=== PATIENT | female | born 1955 | race Caucasian/White ===

== ENCOUNTER 2019-11-30 06:27 | Day surgery (SDC) | payer OTHER, SELFPAY ==
[2019-11-22 11:24] VITALS: BMI 28.6
--- NOTE | 2019-11-23 15:30 | P.CONAN_ITS ---
Documented by User: Jasmyne Carvajalney 11/23/19 15:34 HPI - Anesthesia Eval Consult details Narrative: 64yo F for Colonoscopy [facility] Past Medical History Medical History Anxiety Arthritis Headache IBS (irritable bowel syndrome) Paroxysmal SVT (supraventricular tachycardia) Surgical History Surgical History Anal fistula H/O cardiac radiofrequency ablation History of bunionectomy History of surgical removal of ganglion cyst Hx of arthroscopic knee surgery Hx of cholecystectomy Hx of colonoscopy Social History Social History Smoking Status: Never smoker Use of substances other than those prescribed or required for medical reasons: No Advance Directives: Yes Advance Directives on File: Yes Advance Directives Date on File: 11/30/19 Meds Allergies Allergy/AdvReac Type Severity Reaction Status Date / Time erythromycin base Allergy Severe ANAPHYLAXIS Unverified 11/04/19 15:50 [Erythromycin Base] Erythromycin Allergy Unknown Anaphylaxis Verified 11/30/19 06:40 From Percocet Allergy Mild PASSED Uncoded 11/04/19 15:50 OUT Home Medications Medication Instructions Recorded Confirmed Type [id number] 1 cap PO Q4H PRN 11/22/19 11/22/19 History [Fiorinal] diltiazem HCl [Cardizem CD] 120 mg PO DAILY 11/22/19 11/30/19 History linaclotide [Linzess] 290 mcg PO DAILY 11/22/19 11/22/19 History lorazepam 0.25 mg PO BEDTIME PRN 11/22/19 11/22/19 History Exam Exam Date and Time: November 23, 2019 1530 Height,Weight and Vital Signs: Height 5 ft 5 in Weight 78.018 kg Documented by User: Jorge Judge MD 11/30/19 07:28 [facility] Past Medical History Medical History Anxiety Arthritis Headache IBS (irritable bowel syndrome) Paroxysmal SVT (supraventricular tachycardia) Surgical History Surgical History Anal fistula H/O cardiac radiofrequency ablation History of bunionectomy History of surgical removal of ganglion cyst Hx of arthroscopic knee surgery Hx of cholecystectomy Hx of colonoscopy Social History Social History Smoking Status: Never smoker Use of substances other than those prescribed or required for medical reasons: No Advance Directives: Yes Advance Directives on File: Yes Advance Directives Date on File: 11/30/19 Meds Allergies Allergy/AdvReac Type Severity Reaction Status Date / Time erythromycin base Allergy Severe ANAPHYLAXIS Unverified 11/04/19 15:50 [Erythromycin Base] Erythromycin Allergy Unknown Anaphylaxis Verified 11/30/19 06:40 From Percocet Allergy Mild PASSED Uncoded 11/04/19 15:50 OUT Home Medications Medication Instructions Recorded Confirmed Type [id number] 1 cap PO Q4H PRN 11/22/19 11/22/19 History [Fiorinal] diltiazem HCl [Cardizem CD] 120 mg PO DAILY 11/22/19 11/30/19 History linaclotide [Linzess] 290 mcg PO DAILY 11/22/19 11/22/19 History lorazepam 0.25 mg PO BEDTIME PRN 11/22/19 11/22/19 History Exam Airway Mallampati Class: I TM Dist: >3cm Neck ROM: Full Loose/Missing/Broken Teeth: No Heart: rrr Lungs: nl Other: ao3 Assessment and Plan Assessment Anesthesia Assessment: Anesthesia Plan Discussed and Chart Reviewed Final Anesthetic Review NPO: Yes ASA Class: II Final Preanesthetic Review: No Changes in Pt Med Stat, Meds/Allgs Chart Reviewed, Consent Obtained/Reviewed and Anes Risks/Benef Reviewed Patient Risk: Low Procedure Risk: Low Anesthetic Plan Anesthetic Plan: MAC: Disposition: Standard PACU
[2019-11-30 06:42] VITALS: BP 176/97; PULSE 68; RESP 16; TEMP 37.2; O2SAT 97
--- NOTE | 2019-11-30 07:29 | MHC.SHP ---
Pre-Procedural Eval Section B Chief Complaint: SCREENING Details of Present Illness: screening Relevant Family History (Specify if Yes): No Relevant Social History: None Present Medications: see Short Stay Collaborative assessment Medical History: No relevant PMH (see H&P no changes) History of Previous Operations: No relevant previous surgery Allergies: Allergies Allergy/AdvReac Type Severity Reaction Status Date / Time erythromycin base Allergy Severe ANAPHYLAXIS Unverified 11/04/19 15:50 [Erythromycin Base] Erythromycin Allergy Unknown Anaphylaxis Verified 11/30/19 06:40 From Percocet Allergy Mild PASSED Uncoded 11/04/19 15:50 OUT Review of Systems Sugical H&P ROS: Negative: Constitution, Cardiovascular, Respiratory, Neurological, Psychiatric, Hem-Onc, Allergic/Immunologic, Gastrointestinal, Genitourinary, Musculoskeletal, Integumentary, Endocrine and Eyes/Ears/Nose/Throat Exam Surgical H&P Exam: Normal: HEENT, Normal: Heart, Normal: Lungs, Normal: Extremities, Normal: Abdomen, Normal: Skin and Normal: Neurological Plan Diagnosis/Plan: Unchanged Patient has been examined and remains a candidate for the planned procedure
[2019-11-30 08:01] VITALS: BP 150/87; PULSE 68; RESP 14; TEMP 36.8; O2SAT 99
--- NOTE | 2019-11-30 08:06 | PM.OP ---
Brief Operative Note Date of procedure: 11/30/19 Pre-op diagnosis: screening Post-op diagnosis: other (colon polyp) Procedure: colonoscopy Surgeon: Chon Castro Anesthesia: MAC Estimated blood loss (mL): 0 Pathology: other (polyp) Condition: stable Disposition: PACU
--- NOTE | 2019-11-30 08:08 | PM.OP ---
Brief Operative Note Date of procedure: 11/30/19 Pre-op diagnosis: screening Post-op diagnosis: other (colon polyp) Procedure: colonoscopy Surgeon: Chon Castro Anesthesia: MAC Estimated blood loss (mL): 2 Pathology: other (polyp 25 cm) Condition: stable Disposition: PACU
[2019-11-30 08:16] VITALS: BP 170/90; PULSE 69; RESP 20; O2SAT 99
--- NOTE | 2019-11-30 08:35 | HO.POSTANES ---
Post Anesthesia Evaluation Post Anesthesia Evaluation Vital Signs: Vital Signs Temp Pulse Resp BP Pulse Ox 11/30/19 08:16 69 20 170/90 H 99 11/30/19 08:01 98.3 F 68 14 150/87 H 99 11/30/19 06:42 98.9 F 68 16 176/97 H 97 Anesthesia: Monitored Mental Status: Awake Pain Control: Satisfactory Nausea/Vomiting: None Hydration: Adequate Anesthesia-Related Issues: No Anes. Related Issues
--- NOTE | 2019-11-30 09:02 | OP_ITS ---
SURGEON: Chon Castro MD INDICATIONS: Colon cancer screening. PREOPERATIVE DIAGNOSIS: POSTOPERATIVE DIAGNOSIS: PROCEDURE PERFORMED: Colonoscopy to the terminal ileum with biopsy. ESTIMATED BLOOD LOSS: COMPLICATIONS: ANESTHESIA: ASSISTANTS: SPECIMENS: MEDICATIONS: Monitored anesthesia care. DESCRIPTION OF PROCEDURE: History and physical performed. The risks and benefits of the procedure were explained to the patient. Informed consent was obtained. The patient was placed in the left lateral decubitus position. A digital rectal exam was performed and was found to be normal. The Olympus pediatric video colonoscope was introduced into the rectum and advanced to the cecum without difficulty. The cecum was identified by transillumination, palpation, and identification of ileocecal valve. Examination was performed and the scope was removed. She tolerated the procedure well and was taken to recovery area in stable condition. FINDINGS: The terminal ileum was normal. The visualized colonic mucosa was normal. The quality of the prep was good. A single polyp at 25 cm was removed with biopsy forceps and placed in formalin. No other polyps were identified. The quality of the prep was good. There was mild diverticulosis in the sigmoid. Retroflexed examination showed moderate-sized internal hemorrhoids. IMPRESSION: Colon polyp. RECOMMENDATION: Follow up the biopsy results. MD PAUL Rodríguez/VETO / [id number]
== END 2019-11-30 09:00 | disposition home or self-care (01) ==
PROVIDERS: Internal Medicine Gastroenterology; PCP Physician Assistant; Visit Provider Internal Medicine
PROC: 0DJD8ZZ Inspection of Lower Intestinal Tract, Via Natural or Artificial Opening Endoscopic (ICD-10-PCS; CPT 45378; principal; 2019-11-30 07:30)
DX: Z12.11 Encounter for screening for malignant neoplasm of colon (principal); Z86.010 Personal history of colon polyps; K63.5 Polyp of colon; K57.30 Diverticulosis of large intestine without perforation or abscess without bleeding; K64.8 Other hemorrhoids; K58.1 Irritable bowel syndrome with constipation; Z90.49 Acquired absence of other specified parts of digestive tract; Z80.6 Family history of leukemia; Z79.899 Other long term (current) drug therapy; Z88.1 Allergy status to other antibiotic agents; Z88.8 Allergy status to other drugs, medicaments and biological substances
CPT/HCPCS: 45380; 88305

== ENCOUNTER 2019-12-15 09:15 | Outpatient (REF) | payer OTHER, SELFPAY ==
[2019-12-15 10:45] LABS: Anion Gap 13 (12-20); Blood Urea Nitrogen 14 mg/dL (9-16); Calcium 9.1 mg/dL (8.4-10.2); Carbon Dioxide 30 mmol/L (22-29); Chloride 103 mmol/L (96-108); Estimated Glomerular Filt Rate > 60; Glucose Random 91 mg/dL (60-115); Potassium 4.3 mmol/l (3.3-5.1); Sodium 142 mmol/L (135-145)
== END 2019-12-15 09:16 | disposition home or self-care (01) ==
LOC: HO.10HDL 09:15
PROVIDERS: Visit Provider Nurse Practitioner Family
DX: I10 Essential (primary) hypertension (principal)
CPT/HCPCS: 80048

== ENCOUNTER 2020-04-13 15:11 | Outpatient (REF) | payer OTHER, SELFPAY ==
--- NOTE | ~2020-04-13 | MM_ITS ---
EXAMINATION: MM SCREENING DIGITAL BREAST TOMOSYNTHESIS, BILATERAL CLINICAL INFORMATION: Screening. Asymptomatic. The lifetime risk of breast cancer based on the Tyrer-Cuzick Model is 8.2%. COMPARISON: Mammography: April 08, 2019 and studies dating back to September 23, 2011 TECHNIQUE: Digital breast tomosynthesis is performed in both the craniocaudal and mediolateral oblique views along with computer-aided detection (CAD). Synthesized 2D images are generated from the tomosynthesis. FINDINGS: There are scattered areas of fibroglandular density (ACR BI-RADS breast composition Category b). There are no significant masses, abnormal calcifications, or other abnormalities. MM/MM tomosynthesis screening BI IMPRESSION: There are no significant changes from prior study. ASSESSMENT: BI-RADS 1: Negative RECOMMENDATION: Routine annual mammography screening. This patient's information was entered into a reminder system with a target due date for their next mammogram.
== END 2020-04-13 15:12 | disposition home or self-care (01) ==
LOC: HO.MAMMO 15:11
PROVIDERS: PCP Physician Assistant; Visit Provider Physician Assistant
DX: Z12.31 Encounter for screening mammogram for malignant neoplasm of breast (principal)
CPT/HCPCS: 77063; 77067

== ENCOUNTER → 2020-07-13 08:18 | Outpatient (BNVA) | payer OTHER, SELFPAY | PROVIDERS: PCP Physician Assistant; Referring Provider Physician Assistant; Visit Provider Internal Medicine Cardiovascular Disease | DX: I47.1 Supraventricular tachycardia (principal); I10 Essential (primary) hypertension | CPT/HCPCS: 93005 ==

== ENCOUNTER 2021-03-29 08:19 | Outpatient (REF) | payer OTHER, SELFPAY ==
[2021-03-29 10:34] LABS: Hematocrit 39.3 % (37.0-47.0); Hemoglobin 13.2 g/dl (12.0-16.0); Mean Corpuscular HGB Conc 33.6 g/dl (31.0-35.0); Mean Corpuscular Hemoglobin 29.9 pg (27.0-33.0); Mean Corpuscular Volume 89.1 fL (80.0-98.0); Platelet Count 281 X10*3/uL (160-400); Red Blood Count 4.41 X10*6/uL (4.20-5.50); White Blood Count 3.5 X10*3/uL (4.8-10.8)
[2021-03-29 10:45] LABS: Estimated Average Glucose 111 mg/dL; Hemoglobin A1c % 5.5 %
[2021-03-29 10:52] LABS: Alanine Aminotransferase 25 U/L (0-31); Alkaline Phosphatase 42 U/L (39-117); Anion Gap 8 (12-20); Aspartate Amino Transferase 24 U/L (5-31); Bilirubin Total 0.5 mg/dL (0.0-1.0); Blood Urea Nitrogen 11 mg/dL (9-16); Calcium 9.3 mg/dL (8.4-10.2); Carbon Dioxide 31 mmol/L (22-29); Chloride 106 mmol/L (96-108); Cholesterol 202 mg/dL; Estimated Glomerular Filt Rate > 60; Glucose Fasting 93 mg/dL (60-99); HDL Cholesterol 73 mg/dL; LDL Cholesterol Calculated 120 mg/dl; Potassium 3.9 mmol/L (3.3-5.1); Sodium 141 mmol/L (135-145); Total Protein 6.1 g/dL (6.5-8.0); Triglycerides 47 mg/dL
[2021-03-29 11:07] LABS: TSH reflex Free T4 1.16 uIU/mL (0.32-4.0)
== END 2021-03-29 08:20 | disposition home or self-care (01) ==
LOC: HO.10HDL 08:19
PROVIDERS: Visit Provider Physician Assistant
DX: I10 Essential (primary) hypertension (principal)
CPT/HCPCS: 36415; 80053; 80061; 83036; 84443; 85027

== ENCOUNTER 2021-04-17 07:24 | Outpatient (REF) | payer OTHER, SELFPAY ==
--- NOTE | ~2021-04-17 | MM_ITS ---
EXAMINATION: MM SCREENING DIGITAL BREAST TOMOSYNTHESIS, BILATERAL CLINICAL INFORMATION: Screening. Asymptomatic. The lifetime risk of breast cancer based on the Tyrer-Cuzick Model is 7%. COMPARISON: Mammography: 04/13/2020, 04/08/2019, 02/24/2018 TECHNIQUE: Digital breast tomosynthesis is performed in both the craniocaudal and mediolateral oblique views along with computer-aided detection (CAD). Synthesized 2D images are generated from the tomosynthesis. FINDINGS: There are scattered areas of fibroglandular density (ACR BI-RADS breast composition Category b). There are no significant masses, abnormal calcifications, or other abnormalities. Breast tissue composition borders on predominantly fatty. Parenchymal pattern is similar to prior studies. There are no significant changes. MM/MM tomosynthesis screening BI IMPRESSION: No mammographic evidence of malignancy. ASSESSMENT: BI-RADS 1: Negative RECOMMENDATION: Routine annual mammography screening. This patient's information was entered into a reminder system with a target due date for their next mammogram.
== END 2021-04-17 07:25 | disposition home or self-care (01) ==
LOC: HO.MAMMO 07:24
PROVIDERS: PCP Physician Assistant; Visit Provider Physician Assistant
DX: Z12.31 Encounter for screening mammogram for malignant neoplasm of breast (principal)
CPT/HCPCS: 77063; 77067

== ENCOUNTER 2021-04-18 08:35 | Outpatient (REF) | payer OTHER, SELFPAY ==
--- NOTE | ~2021-04-18 | MM_ITS ---
EXAMINATION: BONE DENSITOMETRY CLINICAL INDICATION: Menopause. COMPARISON: None (current study represents initial baseline exam). TECHNIQUE: Using a [employer] DXA System (software version: 13.1) manufactured by [employer], dual-energy x-ray absorptiometry was performed of the lumbar spine and left hip. The images are of good technical quality. Summary results are attached. FINDINGS: AP SPINE L1-L4: BMD 0.920 g/cm2, Z-score -0.8, T-score -2.2, osteopenia. LEFT FEMUR, NECK: BMD 0.816 g/cm2, Z-score -0.3, T-score -1.6, osteopenia. LEFT FEMUR, TOTAL: BMD 0.899 g/cm2, Z-score 0.2, T-score -0.9, normal. IDENTIFIED RISK FACTORS: Menopause, history of fracture (adult), low calcium intake, Thiazide. HISTORY OF FRACTURE: Wrist. MEDICATIONS: Vitamin D. MM/XR DEXA axial skeleton IMPRESSION: 1. DIAGNOSIS: Osteopenia based on the lowest T-score value of -2.2 in the lumbar spine applying World Health Organization criteria. 2. 10-YEAR FRACTURE RISK PREDICTION, FRAX: Major osteoporotic fracture (clinical spine, forearm, hip or shoulder) 15.3%. Hip fracture 1.7%. 3. Treatment Recommendations: NOF guidelines recommend consideration for treatment in postmenopausal women and men age 50 and older presenting with the following: -A hip or vertebral (clinical or morphometric) fracture. -T-score less than or equal to -2.5 at the femoral neck or spine after appropriate evaluation to exclude secondary causes. -Low bone mass at the hip or spine and a 10-year fracture probability by FRAX of greater than or equal to 3% for hip fracture or greater than or equal to 20% for major osteoporotic fracture based on the [place] adapted WHO algorithm. 4. Other Recommendations: All treatment decisions require clinical judgment and consideration of individual patient factors, including patient preferences, comorbidities, previous drug use, risk factors not captured in the FRAX model (e.g. frailty, falls, vitamin D deficiency, increased bone turnover, interval significant decline in bone density) and possible under or overestimation of fracture risk by FRAX. Additional medical evaluation for secondary cause of low bone mineral density may be appropriate. FUTURE SCAN RECOMMENDATION: People with diagnosed cases of osteoporosis or at high risk for fracture should have regular bone mineral density tests. For patients eligible for Medicare, routine testing is allowed once every 2 years. The testing frequency can be increased to one year for patients who have rapidly progressing disease, those who are receiving or discontinuing medical therapy to restore bone mass, or have additional risk factors.
== END 2021-04-18 08:36 | disposition home or self-care (01) ==
LOC: HO.MAMMO 08:35
PROVIDERS: PCP Physician Assistant; Visit Provider Physician Assistant
DX: Z13.820 Encounter for screening for osteoporosis (principal); E83.51 Hypocalcemia; Z78.0 Asymptomatic menopausal state; Z79.899 Other long term (current) drug therapy
CPT/HCPCS: 77080

== ENCOUNTER → 2021-06-19 10:33 | Outpatient (BNVA) | payer OTHER, SELFPAY | PROVIDERS: PCP Physician Assistant; Referring Provider Physician Assistant; Visit Provider Internal Medicine Cardiovascular Disease | DX: I47.1 Supraventricular tachycardia (principal); I10 Essential (primary) hypertension | CPT/HCPCS: 93005 ==

== ENCOUNTER 2021-11-21 15:47 | Outpatient (REF) | payer MEDICARE, OTHER, SELFPAY ==
[2021-11-22 10:27] LABS: HBsAGNum1 0.21 S/CO (0.00-0.99); HIV AB/AG Nonreactive (Nonreactive); HIV Num 1 0.06 S/CO (0.00-0.99); Hepatitis B Surface Antigen Negative (Negative); ~HepC Num1 0.14 S/CO (0.00-0.79); ~Hepatitis C Antibody Nonreactive (Nonreactive)
== END 2021-11-21 15:48 | disposition home or self-care (01) ==
LOC: HO.LAB 15:47
PROVIDERS: Visit Provider Physician Assistant Medical
DX: Z11.4 Encounter for screening for human immunodeficiency virus [HIV] (principal); Z77.21 Contact with and (suspected) exposure to potentially hazardous body fluids
CPT/HCPCS: 36415; 86803; 87340; 87389

== ENCOUNTER 2022-04-23 07:19 | Outpatient (REF) | payer MEDICARE, OTHER, SELFPAY ==
--- NOTE | ~2022-04-23 | MM_ITS ---
EXAMINATION: MM SCREENING DIGITAL BREAST TOMOSYNTHESIS, BILATERAL CLINICAL INFORMATION: Screening. Asymptomatic. The lifetime risk of breast cancer based on the Tyrer-Cuzick Model is 6%. COMPARISON: Mammography: 04/17/2021, 04/13/2020, 04/08/2019 TECHNIQUE: Digital breast tomosynthesis is performed in both the craniocaudal and mediolateral oblique views along with computer-aided detection (CAD). Synthesized 2D images are generated from the tomosynthesis. FINDINGS: There are scattered areas of fibroglandular density (ACR BI-RADS breast composition Category b). Breast tissue composition borders on predominantly fatty. Background stromal markings are normal and there is no developing density or architectural abnormality. There are no significant masses, abnormal calcifications, or other abnormalities. The axilla are unremarkable. No significant changes. MM/MM tomosynthesis screening BI IMPRESSION: No mammographic evidence of malignancy. ASSESSMENT: BI-RADS 1: Negative RECOMMENDATION: Routine annual mammography screening. This patient's information was entered into a reminder system with a target due date for their next mammogram.
== END 2022-04-23 07:20 | disposition home or self-care (01) ==
LOC: HO.MAMMO 07:19
PROVIDERS: PCP Physician Assistant; Visit Provider Physician Assistant
DX: Z12.31 Encounter for screening mammogram for malignant neoplasm of breast (principal)
CPT/HCPCS: 77063; 77067

== ENCOUNTER 2022-06-17 15:17 | Outpatient (REF) | payer MEDICARE, OTHER, SELFPAY ==
--- NOTE | ~2022-06-17 | XR_ITS ---
EXAMINATION: XR KNEE, RIGHT CLINICAL INFORMATION: Unspecified fall. COMPARISON: None available. TECHNIQUE: Four views of the right knee. FINDINGS: The tricompartment joints is reduced. There is mild chondrocalcinosis of the menisci. No loose bodies,.) Or bony erosive changes. No joint effusion seen. No acute fracture or dislocation. XR/XR knee RT 4V IMPRESSION: Mild chondrocalcinosis of the menisci. No visible acute fracture or dislocation seen.
--- NOTE | ~2022-06-17 | XR_ITS ---
EXAMINATION: XR FACIAL BONES CLINICAL INFORMATION: Abrasion COMPARISON: None available. TECHNIQUE: 3 views of the facial bones were obtained. FINDINGS: There are no fractures or dislocations. No bone, joint or soft tissue abnormality is demonstrated. XR/XR facial bones min 3V IMPRESSION: Unremarkable examination.
== END 2022-06-17 15:18 | disposition home or self-care (01) ==
LOC: HO.HMGCX 15:17
PROVIDERS: PCP Physician Assistant; Visit Provider Nurse Practitioner Family
DX: S00.81XA Abrasion of other part of head, initial encounter (principal); W19.XXXA Unspecified fall, initial encounter; Y93.9 Activity, unspecified; Y92.9 Unspecified place or not applicable; Y99.9 Unspecified external cause status
CPT/HCPCS: 70150; 73564

== ENCOUNTER → 2022-06-25 10:11 | Outpatient (BNVA) | payer MEDICARE, OTHER, SELFPAY | PROVIDERS: PCP Physician Assistant; Referring Provider Physician Assistant; Visit Provider Internal Medicine Cardiovascular Disease | DX: I10 Essential (primary) hypertension (principal); I49.1 Atrial premature depolarization; I47.1 Supraventricular tachycardia; Z98.890 Other specified postprocedural states | CPT/HCPCS: 93005; 99212 ==

== ENCOUNTER 2022-10-19 07:10 | Outpatient (REF) | payer MEDICARE, OTHER, SELFPAY ==
[2022-10-19 08:03] LABS: Hematocrit 42.7 % (37.0-47.0); Hemoglobin 14.5 g/dl (12.0-16.0); Mean Corpuscular Hemoglobin 29.5 pg (27.0-33.0); Mean Platelet Volume 9.9 fL (9.4-12.3); Platelet Count 285 X10*3/uL (160-400); Red Blood Count 4.91 X10*6/uL (4.20-5.50); Red Cell Distribution Width 12.5 % (11.0-16.0); White Blood Count 4.4 X10*3/uL (4.8-10.8)
[2022-10-19 08:27] LABS: Alanine Aminotransferase 30 U/L (0-31); Albumin Level 4.2 g/dL (3.5-5.0); Alkaline Phosphatase 50 U/L (39-117); Anion Gap 13 (12-20); Aspartate Amino Transferase 24 U/L (5-31); Bilirubin Total 0.5 mg/dL (0.0-1.0); Blood Urea Nitrogen 12 mg/dL (9-16); Calcium 9.8 mg/dL (8.4-10.2); Carbon Dioxide 28 mmol/L (22-29); Chloride 104 mmol/L (96-108); Cholesterol 225 mg/dL (<200); Estimated Glomerular Filt Rate > 60; Glucose Fasting 97 mg/dL (60-99); HDL Cholesterol 87 mg/dL (>40); LDL Cholesterol Calculated 130 mg/dL (<100); Potassium 3.7 mmol/L (3.3-5.1); Sodium 141 mmol/L (135-145); Total Protein 6.6 g/dL (6.5-8.0); Triglycerides 44 mg/dL (<150)
[2022-10-19 08:31] LABS: Creatinine Urine 168.95 mg/dL; Microalbum/Creatinine Ratio Ur 3.5 ug/mg cr (<30)
[2022-10-19 10:35] LABS: TSH reflex Free T4 1.77 uIU/mL (0.32-4.0)
== END 2022-10-19 07:11 | disposition home or self-care (01) ==
LOC: HO.LAB 07:10
PROVIDERS: PCP Physician Assistant; Visit Provider Physician Assistant
DX: I10 Essential (primary) hypertension (principal); E78.9 Disorder of lipoprotein metabolism, unspecified; I47.1 Supraventricular tachycardia
CPT/HCPCS: 36415; 80053; 80061; 82043; 82570; 84443; 85027

== ENCOUNTER 2022-10-29 07:51 | Outpatient (AMB) | payer MEDICARE, OTHER, SELFPAY ==
[2022-10-29 07:53] VITALS: BP 128/68; PULSE 63; O2SAT 98
--- NOTE | 2022-10-29 07:53 | A.OFFPC_ITS ---
Vital Signs 10/29/22 07:53 Height 5 ft 5 in BMI Reason not done Patient refused/unable BP 128/68 Blood Pressure Location Lt brachial Position Sitting Pulse 63 Pulse Source Pulse Oximeter Pulse Oximetry (%) 98 Oxygen Delivery Method Room Air Intake Visit Reasons: Physical Exam Allergies erythromycin base [Erythromycin Base] Allergy (Severe, Verified 10/29/22 08:07) Anaphylaxis acetaminophen [From Percocet] Allergy (Mild, Verified 10/29/22 08:07) Passed Out oxycodone [From Percocet] Allergy (Mild, Verified 10/29/22 08:07) Passed Out Medication List - Last Reconciled 10/29/22 by Mitch Anderson PA-C qixubnwceh-ryvflqh-stdyuqge 50-325-40 mg 1 cap PO Q4H PRN 5 days diltiazem HCl 120 mg PO DAILY hydrochlorothiazide 25 mg PO DAILY linaclotide (Linzess) 72 mcg PO QAM Tobacco use date assessed: 10/29/22 Fall risk assessment: 1 Fall in past year Last assessed Fall Risk: 10/29/22 Dental Screening Dental Screen Date: 10/29/22 Did you have a dental visit in the last 12 months?: Yes Did you have a dental problem in the last 6 months where you did not have access to dental care?: No Was dental information given to patient?: Patient has dentist HPI Physical Exam HPI Details Patient is a 66 year-old female here today for annual physical. Patient has a past medical history significant for anxiety, mild to moderate arthritis, paroxysmal SVT. concerns--> report left foot pain went walking long distance. 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 .. ? 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 Of note she has had cardiac ablation x2 in the past.? She reports her palpitations have actually gotten more prevalent and worse.? She continues on diltiazem which has been helpful.? She will call her internet database specialist for re-evaluation on her SVT. Recently sent for CT cardiac calcium score which was 0 though incidentally found a 3 mm pulmonary nodule. Did have a history of smoking thus will repeat CT chest to evaluate nodule in 1 year. .. Hypertension:? Patient blood pressure today in office acceptable. Otherwise patient denies any chest discomfort, headaches, shortness of breath, lower extremity edema. ? . ? .. ? Colonoscopy- had colonoscopy 2019- repeat 5 years?- Dr anand ? .. ? Mammo-? Has mammo upcoming Mammo ? .. ? INVESTIGATOR WELFARE: Dr hedrick Did a PAP - .. Vaccine: UTD with COVID , FLu , tetanus, shingles PFSH Medical History (Updated 10/29/22 @ 08:41 by Mitch Anderson PA-C) COVID-19 Postmenopausal HTN (hypertension) Headache Arthritis Anxiety Paroxysmal SVT (supraventricular tachycardia) IBS (irritable bowel syndrome) Surgical History Hx of colonoscopy History of bunionectomy Hx of arthroscopic knee surgery History of surgical removal of ganglion cyst Hx of cholecystectomy H/O cardiac radiofrequency ablation Anal fistula Family History (Updated 10/29/22 @ 08:23 by Mitch Anderson PA-C) Mother AML (acute myeloblastic leukemia) Brother Diabetes Social History (Updated 10/29/22 @ 08:23 by Mitch Anderson PA-C) Housing: House Alcohol intake: never Patient Tobacco Use Status: Former Tobacco user Quit Date: 1968 Tobacco use type: Cigarette e-Cigarette/Vaping Use: Never Used Second Hand Smoke Exposure: No Advance Directives Date on File: 11/30/19 Current occupational status: 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 1. Little interest or pleasure in doing things: not at all 2. Feeling down, depressed, or hopeless: not at all 3. Trouble falling or staying asleep, or sleeping too much: not at all 4. Feeling tired or having little energy: not at all 5. Poor appetite or overeating: not at all 6. Feeling bad about yourself - or that you are a failure or have let yourself or your family down: not at all 7. Trouble concentrating on things, such as reading the newspaper or watching television: not at all 8. Moving or speaking so slowly that other people could have noticed. Or the opposite - being so fidgety or restless that you have been moving around a lot more than usual: not at all 9. Thoughts that you would be better off or of hurting yourself in some way: not at all Total score: 0 Depression Screening Interpretation: Negative 32091 - PHQ-9 Billing: Yes Source: Developed by Drs. Lorenzo Salinas, Janis Larry, Jesus Dunbar and colleagues, with an educational kimber from [employer]. Thrive Questionnaire Date Thrive assessed: 10/29/22 I am a: Patient What is your living situation today?: I have a steady place to live Within the past 12 months, did the food you bought not last and you didn't have the money to get more?: Never true Within the past 12 months, did you worry whether your food would run out before you got money to buy more?: Never true Do you have trouble paying for medicines?: No Do you have trouble getting transportation to medical appointments?: No Do you have trouble paying your heating and electricity bill?: No Do you have trouble taking care of your child, family member or friend?: No Do you have trouble with day-to-day activities such as bathing, preparing meals, shopping, managing finances, etc.?: No Are you currently unemployed and looking for a job?: No Are you interested in more education?: No Currently or been in a relationship where the following occur: no concerns reported AUDIT C Alcohol Use Questionnaire (AUDIT-C) 1. How often do you have a drink containing alcohol?: Monthly or less 2. How many drinks containing alcohol do you have on a typical day when you are drinking?: 1 or 2 3. How often do you have six or more drinks on one occasion?: Never Total Score: 1 LUIS-7 AMB Questionnaire LUIS-7 Date LUIS - 7 assessed: 10/29/22 Feeling nervous, anxious, or on edge: 0 = Not at all Not being able to stop or control worryin = Not at all Worrying too much about different things: 0 = Not at all Trouble relaxin = Not at all Being so restless that it is hard to sit still: 0 = Not at all Becoming easily annoyed or irritable: 0 = Not at all Feeling afraid as if something awful might happen: 0 = Not at all Total LUIS-7 score (0-4 normal; 5-9 mild; 10-14 moderate; 15-21 severe): 0 Source: Developed by Drs. Lorenzo Salinas, Janis Larry, Jesus Dunbar and colleagues, with an educational kimber from [employer]. LUIS-7 Assessment Billing LUIS-7 Assessment Tool: LUIS-7 Assessment 55204 Review of Systems Const Denies body aches, Denies chills, Denies excessive sweating, Denies fatigue, Denies fever(s) and Denies headache(s) Eyes Denies blurry vision ENT Denies dysphagia, Denies vertigo, Denies dizziness, Denies headache(s), Denies hearing loss and Denies tinnitus Card Denies chest pain, Denies chest pain with activity, Denies syncope, Denies irregular heart rhythm and Denies dyspnea Resp Denies chest congestion, Denies cough, Denies hemoptysis, Denies dyspnea and Denies wheezing GI Denies abdominal pain, Denies melena, Denies hematochezia, Denies coffee ground emesis, Denies dysphagia, Denies diarrhea, Denies nausea and Denies vomiting Denies urinary frequency, Denies dysuria, Denies urinary hesitancy and Denies urinary urgency Musc Denies arthralgias, Denies limited range of motion, Denies muscle cramps and Denies muscle weakness Skin/Breast Denies rash and Denies skin ulcer Neuro Denies Abnormal speech present, Denies confusion, Denies vertigo, Denies dizziness, Denies syncope, Denies headache(s), Denies memory loss and Denies seizure-like activity Psych Denies anxiety, Denies confusion, Denies depression, Denies memory loss, Denies panic attacks and Denies paranoia Endo Denies excessive sweating, Denies fatigue, Denies flushing, Denies polydipsia and Denies polyuria Aller/Immun Denies wheezing Physical exam (Primary Care) Vital Signs: Last Vital Signs Pulse 63 10/29/22 07:53 BP 128/68 10/29/22 07:53 Pulse Ox 98 10/29/22 07:53 Oxygen Delivery Method Room Air 10/29/22 07:53 Tobacco/Smoking Status: Tobacco use Status Tobacco use date assessed 10/29/22 10/29/22 07:55 Patient Tobacco Use Status Former Tobacco user 10/29/22 07:55 Tobacco use type Cigarette 10/29/22 07:55 e-Cigarette/Vaping Use Never Used 10/29/22 07:55 PHQ-9: PHQ-9 Score PHQ-9: Total score 0 10/29/22 08:03 Depression Screening Interpretation: Negative Thrive Assessment: Date of Thrive Assessment Date Thrive assessed 10/29/22 10/29/22 08:03 Currently or been in a relationship where the following occur: no concerns reported Const General: cooperative, comfortable, no acute distress, alert and awake; No confusion Orientation/consciousness: oriented to person, oriented to place, patient oriented x3 and No confusion HENMT Head: Yes normocephalic Ears: external ears normal and TM's normal bilaterally Face and sinus: No sinus tenderness Mouth: Normal oral and palatal mucosa present and tongue normal Teeth and gingiva: dentition normal and gingiva normal Throat: Yes posterior oropharynx normal, Yes tonsils normal and Yes uvula midline Eyes Conjunctivae: conjunctivae normal Sclerae: sclerae normal Pupils: Equal, round and reactive pupils present EOM: EOMs intact bilaterally Direct Ophthalmoscopy: No no photophobia Neck Neck: Yes no lymphadenopathy, No tender and Yes no JVD Thyroid: Thyroid normal Carotids: no bruits Chest Chest palpation & inspection: no tenderness Resp Effort & Inspection: normal respiratory effort, no audible wheezes, not labored and no stridor Auscultation: no crackles, no rales, no rhonchi and no wheezes Cardio Jugular venous distension: no JVD Rate: regular rate, not bradycardic and not tachycardic Rhythm: regular rhythm Bruits: no carotid bruits Peripheral pulses: Peripheral pulses 2+ throughout GI Inspection: Yes normal to inspection, No abdominal wall ecchymosis and No visible herniation Palpation (GI): Soft to palpation, nontender, no guarding, not rigid and No hepatosplenomegaly present Auscultation: normoactive bowel sounds General: Yes no CVA tenderness Back/Spine/Pelvis Back: no CVA tenderness and No back tenderness Cervical Spine: cervical ROM normal Thoracic/Lumbar Spine: thoracic and lumbar spine normal to inspection, straight leg raise negative bilaterally, No thoraco-lumbar ROM limited and No lumbar spinal tenderness Skin Lesions: no lesions Rashes: no rashes Wounds: no wounds Neuro General: oriented to person, oriented to place, patient oriented x3, CN's II-XI intact bilaterally and No confusion Cranial nerves: Yes Equal, round and reactive pupils present and Yes Normal accommodation reflex present Cognition (Neuro): normal cognition Speech: No Abnormal speech present Gait exam (Neuro): Normal gait present Motor exam (neuro): 5/5 motor strength present throughout Extrem Right upper extremity: full ROM; no cyanosis Left upper extremity: full ROM; no cyanosis Right lower extremity: no edema Left lower extremity: no edema Psych Appearance: grossly normal Mental Status: mental status grossly normal Affect: normal affect Attitude: cooperative Thought process: Normal thought process present Assessment and Plan Assessment & Plan (1) Annual physical exam: Code(s): Z00.00 - Encounter for general adult medical examination without abnormal findings (2) LUIS (generalized anxiety disorder): Code(s): F41.1 - Generalized anxiety disorder Plan: Patient reports her anxiety has been fairly well controlled though at times of anxiety she does use lorazepam to 0.5 mg on a very limited p.r.n. basis. (3) SVT (supraventricular tachycardia): Code(s): I47.1 - Supraventricular tachycardia Plan: Continues to follow cardiology. Symptoms of SVT I have been limited. Continues on diltiazem with good effect. (4) HTN (hypertension): Code(s): I10 - Essential (primary) hypertension Qualifiers: Hypertension type: essential hypertension Qualified Code(s): I10 - Essential (primary) hypertension Plan: Patient's blood pressure acceptable today in office. Will continue her current dose of hydrochlorothiazide with goal blood pressure to be below 140/90 (5) Pulmonary nodules: Code(s): R91.8 - Other nonspecific abnormal finding of lung field Plan: Incidentally found to have a 3 mm pulmonary nodule on recent CT cardiac. Will follow-up the nodule in 12 months. (6) Borderline high cholesterol: Code(s): E78.9 - Disorder of lipoprotein metabolism, unspecified Plan: Patient's most recent lipid panel showing borderline high total cholesterol and LDL. Fortunately HDL excellent at 87. She will continue working on lifestyle modifications and diet modifications to reduce her cholesterol. (7) Migraines: Code(s): G43.909 - Migraine, unspecified, not intractable, without status migrainosus Qualifiers: Migraine type: without aura Status migrainosus presence: without status migrainosus Intractability: not intractable Qualified Code(s): G43.009 - Migraine without aura, not intractable, without status migrainosus Plan: Patient does use p.r.n. Fioricet for her migraines. She reports her migraines are worse during changes of seasons which could likely be sinusitis. Orders: Orders Microalbumin, Random (w Creat) Today I10 - Essential (primary) hypertension Comprehensive [place]. Panel Fast Today I10 - Essential (primary) hypertension Complete Blood Count no Diff Today I10 - Essential (primary) hypertension Lipid Panel Today E78.9 - Disorder of lipoprotein metabolism, unspecified, I47.1 - Supraventricular tachycardia Medications: New lorazepam 0.5 mg PO BEDTIME 15 days 15 tabs 1RF anxiety F41.1 - Generalized anxiety disorder Refilled evywmibdzg-noxltkc-oljfrmzg 50-325-40 mg 1 cap PO Q4H 5 days PRN 30 caps 0RF Headache H60.311 - Diffuse otitis externa, right ear Coding Level of Care Code Est Pt Prev Care >65y(04096) Diagnoses Annual physical exam Z00.00 LUIS (generalized anxiety disorder) F41.1 SVT (supraventricular tachycardia) I47.1 Essential hypertension I10 Hypertension type: essential hypertension Pulmonary nodules R91.8 Borderline high cholesterol E78.9 Migraine without aura and without status migrainosus, not intractable G43.009 Migraine type: without aura Status migrainosus presence: without status migrainosus Intractability: not intractable Additional Codes LUIS-7 Assessment Billing - LUIS-7 Assessment Tool: LUIS-7 Assessment 09713 ([id number])
== END 2022-10-29 08:36 | disposition home or self-care (01) ==
PROVIDERS: Visit Provider Physician Assistant
DX: Z00.00 Encounter for general adult medical examination without abnormal findings (principal); I47.1 Supraventricular tachycardia; I10 Essential (primary) hypertension; G43.009 Migraine without aura, not intractable, without status migrainosus; F41.1 Generalized anxiety disorder; R91.8 Other nonspecific abnormal finding of lung field; E78.9 Disorder of lipoprotein metabolism, unspecified
CPT/HCPCS: 99397

== ENCOUNTER 2022-11-18 13:59 | Outpatient (REF) | payer MEDICARE, OTHER, SELFPAY ==
[2022-11-18 16:26] LABS: Vitamin D 25-OH Total 42.7 ng/mL (>30)
== END 2022-11-18 14:00 | disposition home or self-care (01) ==
LOC: HO.LAB 13:59
PROVIDERS: PCP Physician Assistant; Visit Provider Physician Assistant
DX: E55.9 Vitamin D deficiency, unspecified (principal)
CPT/HCPCS: 36415; 82306

== ENCOUNTER 2023-04-29 07:21 | Outpatient (REF) | payer MEDICARE, OTHER, SELFPAY ==
--- NOTE | ~2023-04-29 | MM_ITS ---
EXAMINATION: MM SCREENING DIGITAL BREAST TOMOSYNTHESIS, BILATERAL CLINICAL INFORMATION: Screening. Asymptomatic. COMPARISON: Mammography: 04/23/2022, 04/17/2021, 04/13/2020, 04/08/2019 TECHNIQUE: Digital breast tomosynthesis is performed in both the craniocaudal and mediolateral oblique views along with computer-aided detection (CAD). Synthesized 2D images are generated from the tomosynthesis. FINDINGS: The breasts are almost entirely fatty (ACR BI-RADS breast composition Category a). There are no suspicious masses, suspicious grouped calcifications, or areas of architectural distortion in either breast. The parenchymal pattern is stable from prior exams. MM/MM tomosynthesis screening BI IMPRESSION: No mammographic evidence of malignancy. ASSESSMENT: BI-RADS BI-RADS 1 - Negative RECOMMENDATION: Routine annual mammography screening. 1 year F/U This examination should not preclude the clinical evaluation of a suspicious palpable abnormality. This patient's information was entered into a reminder system with a target due date for their next mammogram.
== END 2023-04-29 07:22 | disposition home or self-care (01) ==
LOC: HO.MAMMO 07:21
PROVIDERS: PCP Physician Assistant; Visit Provider Physician Assistant
DX: Z12.31 Encounter for screening mammogram for malignant neoplasm of breast (principal)
CPT/HCPCS: 77063; 77067

== ENCOUNTER → 2023-04-29 07:30 | Outpatient (BNV) | payer MEDICARE, OTHER, SELFPAY | PROVIDERS: PCP Physician Assistant; Visit Provider Radiology Diagnostic Radiology | DX: Z12.31 Encounter for screening mammogram for malignant neoplasm of breast (principal) | CPT/HCPCS: 77063; 77067 ==

== ENCOUNTER 2023-07-21 07:22 | Outpatient (REF) | payer MEDICARE, OTHER, SELFPAY ==
--- NOTE | ~2023-07-21 | CT_ITS ---
EXAMINATION: CT CHEST WITH CONTRAST CLINICAL INFORMATION: Nodule follow-up. History of smoker. Surveillance. COMPARISON: Chest radiograph 04/16/2018 TECHNIQUE: Multidetector volumetric CT imaging of the chest was obtained after the administration of 65 mL of Omnipaque 350 intravenous contrast without immediate adverse reactions. Axial MIP volume rendering provided. Sagittal and coronal reformatted images were obtained. This CT examination was performed using dose optimization techniques as appropriate, variously including the following: *Automated exposure control *Adjustment of mA and/or kV according to patient size (this includes techniques or standardized protocols for targeted exams where dose is matched to indication/reason for exam; i.e. extremities or head) *Use of iterative reconstruction technique DLP: 100 mGy-cm FINDINGS: SHOPPING INVESTIGATOR: Unremarkable LUNGS: Atelectatic change and scar, at the left base extending to the pleural surface. No suspicious nodules or consolidations. MEDIASTINUM: Normal contrast enhancement in the great vessels of the mediastinum. No significant adenopathy. Few tiny punctate subcentimeter calcified nodes are seen in the right paratracheal space. Thoracic inlet is unremarkable. There may be minor coronary artery calcification. PLEURA: There is no pleural effusion. No pleural mass or thickening. AXILLA: No lymphadenopathy. UPPER ABDOMEN: Unremarkable OSSEOUS STRUCTURES: Spondylitic change in the thoracic spine but no fracture. Sternum intact. CT/CT chest w IV con IMPRESSION: No active disease. No suspicious nodules. Fleischner guidelines were followed.
[2023-07-21] MEDS: iohexoL 350 MG/ML 75 ML INFUS..BTL 65 ML IV (08:47)
[2023-07-22 10:54] LABS: Creatinine POC 0.7 mg/dL (0.5-1.4); GFR POC > 60
== END 2023-07-21 07:23 | disposition home or self-care (01) ==
LOC: HO.CT 07:22
PROVIDERS: PCP Physician Assistant; Visit Provider Physician Assistant
DX: R91.8 Other nonspecific abnormal finding of lung field (principal)
CPT/HCPCS: 71260; 82565; Q9967

== ENCOUNTER 2023-08-06 08:30 | Outpatient (AMB) | payer MEDICARE, OTHER, SELFPAY ==
[2023-08-06 08:39] VITALS: BP 116/70; PULSE 63; BMI 27.5
--- NOTE | 2023-08-06 08:39 | MHC.OFFVIS ---
Vital Signs 08/06/23 08:39 Height 5 ft 5 in Weight 165 lb 5.547 oz BMI 27.5 BP 116/70 Blood Pressure Location Lt brachial Position Sitting Pulse 63 Intake Visit Reasons: 1 yr f/up Intake Note: 1 year follow-up with ekg c/o increased fatigue and still has fluttering Resource Engineer Required: No Allergies erythromycin base [Erythromycin Base] Allergy (Severe, Verified 10/29/22 08:07) Anaphylaxis acetaminophen [From Percocet] Allergy (Mild, Verified 10/29/22 08:07) Passed Out oxycodone [From Percocet] Allergy (Mild, Verified 10/29/22 08:07) Passed Out Medication List - Last Reconciled 08/06/23 by Gurvinder Horne MD qtvumsmvtk-qjcnqlt-fibjluhc 50-325-40 mg 1 cap PO Q4H PRN 5 days diltiazem HCl CD 120 mg PO DAILY hydrochlorothiazide 25 mg PO DAILY linaclotide (Linzess) 72 mcg PO QAM lorazepam 1 mg PO BEDTIME 15 days timolol 0.25% 1 drp ophthalmic (eye) DAILY HPI Comments Details: Cristal Comes for follow-up. Patient intermittently still has fluttering in her chest. However she has no concerning prolonged palpitation except for when she goes up hiking she notices heart suddenly racing which then stops after resting and/or rarely has to do a vagal maneuver. She denies any lightheadedness, syncope. Blood pressure is well controlled. Coronary calcium score was 0. She says she has more fatigue now but thinks that this is related to aging. No exertional chest pain. No worsening shortness of breath, orthopnea, PND. PFSH Medical History COVID-19 Postmenopausal HTN (hypertension) Headache Arthritis Anxiety Paroxysmal SVT (supraventricular tachycardia) IBS (irritable bowel syndrome) Surgical History Hx of colonoscopy History of bunionectomy Hx of arthroscopic knee surgery History of surgical removal of ganglion cyst Hx of cholecystectomy H/O cardiac radiofrequency ablation Anal fistula Family History Mother AML (acute myeloblastic leukemia) Brother Diabetes Social History Housing: House Alcohol intake: never Patient Tobacco Use Status: Former Tobacco user Tobacco use type: Cigarette e-Cigarette/Vaping Use: Never Used Second Hand Smoke Exposure: No Advance Directives Date on File: 11/30/19 Current occupational status: 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 Cognitive needs: No Hearing needs: No Vision needs: Yes Review of Systems Const Denies chills, Denies fatigue, Denies fever(s), Denies frequent falls, Denies weakness, Denies weight gain and Denies weight loss ENT Denies dizziness Card Denies chest pain, Denies leg edema, Denies lightheadedness, Denies palpitations, Denies dyspnea, Denies dyspnea on exertion, Denies orthopnea and Denies other (loss of consciousness) Resp Denies cough, Denies dyspnea and Denies dyspnea on exertion GI Denies hematochezia and Denies change in stool character Musc Denies abnormal gait, Denies muscle weakness, Denies numbness, Denies radiating pain into limb and Denies tingling Neuro Denies abnormal gait, Denies dizziness, Denies frequent falls, Denies numbness, Denies tingling and Denies weakness Endo Denies fatigue and Denies palpitations Physical Exam Vital Signs: Last Vital Signs Pulse 63 08/06/23 08:39 BP 116/70 08/06/23 08:39 BMI result Body Mass Index 27.5 Const General: comfortable, no acute distress, alert, awake and well groomed Nutritional Appearance: thin Orientation/consciousness: patient oriented x3 Limitations: no limitations Neck Neck: Yes trachea midline and Yes supple Resp Effort & Inspection: normal respiratory effort Auscultation: clear to auscultation bilaterally Cardio Jugular venous distension: no JVD Palpation: normal PMI Rate: regular rate Rhythm: regular rhythm Heart sounds: S1 normal heart sound present and S2 normal heart sound present GI Auscultation: normal bowel sounds Skin General skin exam: no rashes or lesions noted Neuro General: patient oriented x3 and no focal motor deficits Extrem General: Yes no clubbing, cyanosis or edema Psych Appearance: grossly normal Office Procedures EKG Details: EKG shows NSR with normal EKG [id number], Complete Assessment & Plan Assessment & Plan (1) SVT (supraventricular tachycardia): Code(s): I47.1 - Supraventricular tachycardia Category: Medical Plan: Patient with prior cardiac arrhythmias with prior SVT which she has some brief episode with exercise but also had frequent PACs in the past. She continues to be bothered by occasional fluttering in her chest but they are not very life-limiting at this point time. Continue to avoid stimulants. Continue Cardizem therapy. Will avoid any other uptitration of therapy given symptoms of fatigue which has suggestive of more chronotropic incompetence. (2) HTN (hypertension): Code(s): I10 - Essential (primary) hypertension Category: Medical Qualifiers: Hypertension type: essential hypertension Qualified Code(s): I10 - Essential (primary) hypertension Plan: Hypertension which is currently well optimized advised to monitor blood pressure at home maintain a log. Goal blood pressure less than 130/84. Coronary calcium score of 0 with borderline high cholesterol. Continue aggressive lifestyle modification. Encouraged to increase activity level as tolerated. Will follow up in the clinic in 1 year's time, sooner p.r.n.. Thank you for allowing me to partake in his care Coding Level of Care Code Est Pt Level 4 (92835) Diagnoses SVT (supraventricular tachycardia) I47.1 Essential hypertension I10 Hypertension type: essential hypertension CPT Codes EKG - CPT: 91541-[id number], Complete ([id number])
== END 2023-08-06 09:35 | disposition home or self-care (01) ==
PROVIDERS: PCP Physician Assistant; Visit Provider Internal Medicine Cardiovascular Disease
DX: I47.10 Supraventricular tachycardia, unspecified (principal); I10 Essential (primary) hypertension
CPT/HCPCS: 93010; 99214

== ENCOUNTER → 2023-08-06 08:30 | Outpatient (BNVA) | payer MEDICARE, OTHER, SELFPAY | PROVIDERS: PCP Physician Assistant; Visit Provider Internal Medicine Cardiovascular Disease | DX: I47.10 Supraventricular tachycardia, unspecified (principal); I10 Essential (primary) hypertension | CPT/HCPCS: 93005; 99212 ==

== ENCOUNTER 2023-09-08 12:43 | Outpatient (AMB) | payer MEDICARE, OTHER, SELFPAY ==
[2023-09-08 12:49] VITALS: BP 126/74; PULSE 76; TEMP 36.6; O2SAT 97; BMI 28.3
--- NOTE | 2023-09-08 12:49 | AM.OFFWIN_ITS ---
Intake Vital Signs 09/08/23 12:49 Height 5 ft 5 in Weight 170 lb BMI 28.3 BP 126/74 Blood Pressure Location Rt brachial Position Sitting Pulse 76 Pulse Source Pulse Oximeter Temp 97.9 F Temp Source Oral Pulse Oximetry (%) 97 Oxygen Delivery Method Room Air Intake Visit Reasons: EP RT ankle injury Intake Note: pt is here for left ankle pain due to injury Patient Tobacco Use Status: Former Tobacco user Allergies erythromycin base [Erythromycin Base] Allergy (Severe, Verified 09/08/23 12:49) Anaphylaxis acetaminophen [From Percocet] Allergy (Mild, Verified 09/08/23 12:49) Passed Out oxycodone [From Percocet] Allergy (Mild, Verified 09/08/23 12:49) Passed Out Do you need a note to return to daycare/school/sports/work: No HPI EP RT ankle injury HPI Details This note is constructed using voice recognition software. While every effort has been made to ensure accuracy, building maintenance supervisor errors may have been included. The patient is a 67 year old female who presents to the clinic today with 1 hour history of lateral right ankle pain after a fall with twisting motion. She notes that she had stepped into a hole in her yd, and twisted the ankle, developing immediate swelling and pain. She is able to put pressure on the ankle however there is pain when she walks. She is not done anything to assist or improve the pain as she presented to the walk-in clinic immediately. [facility] Medical History COVID-19 Postmenopausal HTN (hypertension) Headache Arthritis Anxiety Paroxysmal SVT (supraventricular tachycardia) IBS (irritable bowel syndrome) Surgical History Hx of colonoscopy History of bunionectomy Hx of arthroscopic knee surgery History of surgical removal of ganglion cyst Hx of cholecystectomy H/O cardiac radiofrequency ablation Anal fistula Family History Mother AML (acute myeloblastic leukemia) Brother Diabetes Social History Housing: House Alcohol intake: never Patient Tobacco Use Status: Former Tobacco user Tobacco use type: Cigarette e-Cigarette/Vaping Use: Never Used Second Hand Smoke Exposure: No Advance Directives Date on File: 11/30/19 Current occupational status: 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 Cognitive needs: No Hearing needs: No Vision needs: Yes Review of Systems Const All systems reviewed & are unremarkable except as noted in HPI and below Physical Exam Vital Signs: Last Vital Signs Temp 97.9 F 09/08/23 12:49 Pulse 76 09/08/23 12:49 BP 126/74 09/08/23 12:49 Pulse Ox 97 09/08/23 12:49 Oxygen Delivery Method Room Air 09/08/23 12:49 BMI result Body Mass Index 28.3 Const General: cooperative, healthy appearing, comfortable, no acute distress and alert Orientation/consciousness: patient oriented x3 Limitations: no limitations Skin General skin exam: no rashes or lesions noted, elasticity normal and turgor normal Neuro General: patient oriented x3 Extrem Other: strength 5/5, good flexion, extension of right ankle, tender to palpation posterior lateral malleolus, with obvious edema to the area. No warmth. Reduced internal rotation due to pain. Antalgic gait present. General: Yes capillary refill normal and Yes normal exam except as noted Psych Appearance: grossly normal Mental Status: mental status grossly normal Speech and movement: Normal speech and movement present Affect: normal affect Assessment & Plan Assessment & Plan (1) Ankle pain, right: Code(s): M25.571 - Pain in right ankle and joints of right foot Qualifiers: Chronicity: acute Qualified Code(s): M25.571 - Pain in right ankle and joints of right foot Plan: We will obtain x-ray to rule out fracture. Discussed immobilization, plans to wear immobilizing boot that she has at home. Volodymyr wrap applied. Advised rest, ice, compression, elevation, and use of NSAIDs as able. X-ray viewed by this provider, no obvious fracture or deformity, await radiology official reading. Plan See above for full details and plan. Orders: Orders XR ankle RT min 3V Today M25.571 - Pain in right ankle and joints of right foot Coding Level of Care Code Est Pt Level 4 (99286) Diagnoses Acute right ankle pain M25.571 Chronicity: acute
== END 2023-09-08 14:24 | disposition home or self-care (01) ==
PROVIDERS: PCP Physician Assistant; Visit Provider Registered Nurse
DX: M25.571 Pain in right ankle and joints of right foot (principal)
CPT/HCPCS: 99214

== ENCOUNTER 2023-09-08 13:11 | Outpatient (REF) | payer MEDICARE, OTHER, SELFPAY ==
--- NOTE | ~2023-09-08 | XR_ITS ---
EXAMINATION: XR ANKLE, RIGHT CLINICAL INFORMATION: Right ankle pain after injury COMPARISON: None available. TECHNIQUE: AP, lateral, and mortise views of the right ankle. FINDINGS: There is soft tissue swelling seen bilaterally, lateral greater than medial. A small ankle joint effusion is present. No definite fracture or dislocation. The ankle mortise appears stable. Some mild degenerative changes are seen at the tips of the medial and lateral malleolus XR/XR ankle RT min 3V IMPRESSION: Soft tissue swelling and small ankle joint effusion. No definite fracture is seen.
== END 2023-09-08 13:12 | disposition home or self-care (01) ==
LOC: HO.HMGCX 13:11
PROVIDERS: PCP Physician Assistant; Visit Provider Registered Nurse
DX: M25.571 Pain in right ankle and joints of right foot (principal)
CPT/HCPCS: 73610

== ENCOUNTER 2023-11-10 08:55 | Outpatient (REF) | payer MEDICARE, OTHER, SELFPAY ==
[2023-11-10 10:42] LABS: Hematocrit 41.6 % (37.0-47.0); Hemoglobin 13.9 g/dl (12.0-16.0); Mean Corpuscular HGB Conc 33.4 g/dl (31.0-35.0); Mean Corpuscular Hemoglobin 29.5 pg (27.0-33.0); Mean Corpuscular Volume 88.3 fL (80.0-98.0); Mean Platelet Volume 9.8 fL (9.4-12.3); Platelet Count 296 X10*3/uL (160-400); Red Blood Count 4.71 X10*6/uL (4.20-5.50); Red Cell Distribution Width 12.7 % (11.0-16.0); White Blood Count 4.2 X10*3/uL (4.8-10.8)
[2023-11-10 11:22] LABS: Creatinine Urine 151.21 mg/dL; Microalbum/Creatinine Ratio Ur 3.9 ug/mg cr (<30)
[2023-11-10 11:26] LABS: Alanine Aminotransferase 27 U/L (0-31); Albumin Level 4.1 g/dL (3.5-5.0); Alkaline Phosphatase 55 U/L (39-117); Anion Gap 11 (12-20); Aspartate Amino Transferase 20 U/L (5-31); Bilirubin Total 0.5 mg/dL (0.0-1.0); Blood Urea Nitrogen 13 mg/dL (9-16); Calcium 9.6 mg/dL (8.4-10.2); Carbon Dioxide 31 mmol/L (22-29); Chloride 106 mmol/L (96-108); Cholesterol 214 mg/dL (<200); Estimated Glomerular Filt Rate > 60; Glucose Fasting 99 mg/dL (60-99); HDL Cholesterol 77 mg/dL (>40); LDL Cholesterol Calculated 122 mg/dL (<100); Potassium 3.7 mmol/L (3.3-5.1); Sodium 144 mmol/L (135-145); Total Protein 6.7 g/dL (6.5-8.0); Triglycerides 79 mg/dL (<150)
[2023-11-10 11:47] LABS: Vitamin D 25-OH Total 39.4 ng/mL (>30)
== END 2023-11-10 08:56 | disposition home or self-care (01) ==
LOC: HO.10HDL 08:55
PROVIDERS: Visit Provider Physician Assistant
DX: E55.9 Vitamin D deficiency, unspecified (principal); E78.9 Disorder of lipoprotein metabolism, unspecified; I10 Essential (primary) hypertension
CPT/HCPCS: 36415; 80053; 80061; 82043; 82306; 82570; 85027

== ENCOUNTER 2023-11-11 11:04 | Outpatient (REF) | payer MEDICARE, OTHER, SELFPAY ==
[2023-11-11 12:33] LABS: Influenza A PCR NEGATIVE (Negative); Influenza B PCR NEGATIVE (Negative); Resp Syncy Virus RNA Qual PCR NEGATIVE (Negative); SARS COV2 PCR INHOUSE NEGATIVE (Negative)
== END 2023-11-11 11:05 | disposition home or self-care (01) ==
LOC: HO.LAB 11:04
PROVIDERS: PCP Physician Assistant; Visit Provider Physician Assistant
DX: R09.89 Other specified symptoms and signs involving the circulatory and respiratory systems (principal)
CPT/HCPCS: 0241U

== ENCOUNTER 2023-11-19 10:59 | Outpatient (AMB) | payer MEDICARE, OTHER, SELFPAY ==
[2023-11-19 11:16] VITALS: BP 130/82; PULSE 74; O2SAT 99; BMI 28.6
--- NOTE | 2023-11-19 11:16 | MHC.PC.OV ---
Vital Signs 11/19/23 11:16 Height 5 ft 5 in Weight 172 lb BMI 28.6 BP 130/82 Blood Pressure Location Lt brachial Position Sitting Pulse 74 Pulse Source Pulse Oximeter Pulse Oximetry (%) 99 Oxygen Delivery Method Room Air Intake Visit Reasons: Annual Exam Intake Note: Patient is here today for a physical. Receiving Clerk Required: No Accompanied by: Self / Same As Patient Allergies erythromycin base [Erythromycin Base] Allergy (Severe, Verified 11/19/23 11:30) Anaphylaxis acetaminophen [From Percocet] Allergy (Mild, Verified 11/19/23 11:30) Passed Out oxycodone [From Percocet] Allergy (Mild, Verified 11/19/23 11:30) Passed Out Medication List - Last Reconciled 11/19/23 by Mitch Anderson PA-C [id number] 50-325-40 mg 1 cap PO Q4H PRN 5 days diltiazem HCl CD 120 mg PO DAILY hydrochlorothiazide 25 mg PO DAILY linaclotide (Linzess) 72 mcg PO QAM lorazepam 1 mg PO BEDTIME 15 days timolol 0.25% 1 drp ophthalmic (eye) DAILY Tobacco use date assessed: 11/19/23 Fall risk assessment: No Falls in past year Last assessed Fall Risk: 11/19/23 Dental Screening Dental Screen Date: 11/19/23 Did you have a dental visit in the last 12 months?: Yes Did you have a dental problem in the last 6 months where you did not have access to dental care?: No Was dental information given to patient?: Patient has dentist HPI Annual Exam HPI Details Patient is a 68 year-old female here today for annual physical. Patient has a past medical history significant for anxiety, mild to moderate arthritis, paroxysmal SVT. concerns--> have noted a chronic low white blood cell count. She does report her mother had AML and in her 80s. PLAN: Will set patient up Hematology for evaluation for leukopenia ? .. ? 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 Of note she has had cardiac ablation x2 in the past.? She reports her palpitations have actually gotten more prevalent and worse.? She continues on diltiazem which has been helpful.? She will call her bioinformatics support specialist for re-evaluation on her SVT. Recently sent for CT cardiac calcium score which was 0 though incidentally found a 3 mm pulmonary nodule. She did undergo a repeat CT of chest in July of 2023 which did not show any nodule. .. Hypertension:? Patient blood pressure today in office acceptable. Otherwise patient denies any chest discomfort, headaches, shortness of breath, lower extremity edema. .. Borderline high cholesterol: Patient's most recent lipid panel showing improved total cholesterol. Has been working on lifestyle modifications to reduce her cholesterol. ? . ? .. ? Colonoscopy- had colonoscopy 2019- repeat 5 years?- Dr anand ? .. ? Mammo-? Done April 2023- BIRADS 1 Bone density-done in 2021 which did show osteopenia, will recheck density. ? .. ? SOLAR SALES: Dr hedrick at [facility] - Has had abnormal PAP .. Vaccine: UTD with COVID , willing to get FLu , tetanus, shingles Laboratory Tests 10/19/22 11/10/23 07:32 09:00 WBC 4.2 L RBC 4.71 Creatinine 0.82 Cholesterol 225 H 214 H 25-OH Vitamin D To suki 39.4 Urine Microalbumin 6.0 PFSH Medical History COVID-19 Postmenopausal HTN (hypertension) Headache Arthritis Anxiety Paroxysmal SVT (supraventricular tachycardia) IBS (irritable bowel syndrome) Surgical History Hx of colonoscopy History of bunionectomy Hx of arthroscopic knee surgery History of surgical removal of ganglion cyst Hx of cholecystectomy H/O cardiac radiofrequency ablation Anal fistula Family History Mother AML (acute myeloblastic leukemia) Brother Diabetes Social History Housing: House Alcohol intake: never Patient Tobacco Use Status: Former Tobacco user Tobacco use type: Cigarette e-Cigarette/Vaping Use: Never Used Second Hand Smoke Exposure: No Advance Directives Date on File: 11/30/19 service: No Current occupational status: 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 1. Little interest or pleasure in doing things: not at all 2. Feeling down, depressed, or hopeless: not at all 3. Trouble falling or staying asleep, or sleeping too much: not at all 4. Feeling tired or having little energy: not at all 5. Poor appetite or overeating: not at all 6. Feeling bad about yourself - or that you are a failure or have let yourself or your family down: not at all 7. Trouble concentrating on things, such as reading the newspaper or watching television: not at all 8. Moving or speaking so slowly that other people could have noticed. Or the opposite - being so fidgety or restless that you have been moving around a lot more than usual: not at all 9. Thoughts that you would be better off or of hurting yourself in some way: not at all Total score: 0 Depression Screening Interpretation: Negative Depression Screening Done: Yes 23323 - PHQ-9 Billing: Yes Source: Developed by Drs. Lorenzo Salinas, Janis Larry, Jesus Dunbar and colleagues, with an educational kimber from [employer]. Thrive Questionnaire Date Thrive assessed: 11/19/23 I am a: Patient What is your living situation today?: I have a steady place to live Within the past 12 months, did the food you bought not last and you didn't have the money to get more?: Never true Within the past 12 months, did you worry whether your food would run out before you got money to buy more?: Never true Do you have trouble paying for medicines?: No Do you have trouble getting transportation to medical appointments?: No Do you have trouble paying your heating and electricity bill?: No Do you have trouble taking care of your child, family member or friend?: No Do you have trouble with day-to-day activities such as bathing, preparing meals, shopping, managing finances, etc.?: No Are you currently unemployed and looking for a job?: No Are you interested in more education?: No Please select the resources that you would like help with: None Currently or been in a relationship where the following occur: No concerns reported THRIVE Score: 0 AUDIT C Alcohol Use Questionnaire (AUDIT-C) 1. How often do you have a drink containing alcohol?: Monthly or less 2. How many drinks containing alcohol do you have on a typical day when you are drinking?: 1 or 2 3. How often do you have six or more drinks on one occasion?: Never Total Score: 1 LUIS-7 AMB Questionnaire LUIS-7 Date LUIS - 7 assessed: 11/19/23 Feeling nervous, anxious, or on edge: 0 = Not at all Not being able to stop or control worryin = Not at all Worrying too much about different things: 0 = Not at all Trouble relaxin = Not at all Being so restless that it is hard to sit still: 0 = Not at all Becoming easily annoyed or irritable: 0 = Not at all Feeling afraid as if something awful might happen: 0 = Not at all Total LUIS-7 score (0-4 normal; 5-9 mild; 10-14 moderate; 15-21 severe): 0 Source: Developed by Drs. Lorenzo Salinas, Janis Larry, Jesus Dunbar and colleagues, with an educational kimber from [employer]. LUIS-7 Assessment Billing LUIS-7 Assessment Tool: LUIS-7 Assessment 01540 Review of Systems Const Denies body aches, Denies chills, Denies excessive sweating, Denies fatigue, Denies fever(s) and Denies headache(s) Eyes Denies blurry vision ENT Denies dysphagia, Denies vertigo, Denies dizziness, Denies headache(s), Denies hearing loss and Denies tinnitus Card Denies chest pain, Denies chest pain with activity, Denies syncope, Denies irregular heart rhythm and Denies dyspnea Resp Denies chest congestion, Denies cough, Denies hemoptysis, Denies dyspnea and Denies wheezing GI Denies abdominal pain, Denies melena, Denies hematochezia, Denies coffee ground emesis, Denies dysphagia, Denies diarrhea, Denies nausea and Denies vomiting Denies urinary frequency, Denies dysuria, Denies urinary hesitancy and Denies urinary urgency Musc Denies arthralgias, Denies limited range of motion, Denies muscle cramps and Denies muscle weakness Skin/Breast Denies rash and Denies skin ulcer Neuro Denies Abnormal speech present, Denies confusion, Denies vertigo, Denies dizziness, Denies syncope, Denies headache(s), Denies memory loss and Denies seizure-like activity Psych Denies anxiety, Denies confusion, Denies depression, Denies memory loss, Denies panic attacks and Denies paranoia Endo Denies excessive sweating, Denies fatigue, Denies flushing, Denies polydipsia and Denies polyuria Aller/Immun Denies wheezing Physical exam (Primary Care) Vital Signs: Last Vital Signs Pulse 74 11/19/23 11:16 BP 130/82 11/19/23 11:16 Pulse Ox 99 11/19/23 11:16 Oxygen Delivery Method Room Air 11/19/23 11:16 BMI result Body Mass Index 28.6 Tobacco/Smoking Status: Tobacco use Status Tobacco use date assessed 11/19/23 11/19/23 11:26 Patient Tobacco Use Status Former Tobacco user 11/19/23 11:20 Tobacco use type Cigarette 11/19/23 11:20 e-Cigarette/Vaping Use Never Used 11/19/23 11:20 PHQ-9: PHQ-9 Score PHQ-9: Total score 0 11/19/23 11:32 Depression Screening Interpretation: Negative Thrive Assessment: Date of Thrive Assessment Date Thrive assessed 11/19/23 11/19/23 11:20 Currently or been in a relationship where the following occur: No concerns reported Const General: cooperative, comfortable, no acute distress, alert and awake; No confusion Orientation/consciousness: oriented to person, oriented to place, patient oriented x3 and No confusion HENMT Head: Yes normocephalic Ears: external ears normal and TM's normal bilaterally Face and sinus: No sinus tenderness Mouth: Normal oral and palatal mucosa present and tongue normal Teeth and gingiva: dentition normal and gingiva normal Throat: Yes posterior oropharynx normal, Yes tonsils normal and Yes uvula midline Eyes Conjunctivae: conjunctivae normal Sclerae: sclerae normal Pupils: Equal, round and reactive pupils present EOM: EOMs intact bilaterally Direct Ophthalmoscopy: No no photophobia Neck Neck: Yes no lymphadenopathy, No tender and Yes no JVD Thyroid: Thyroid normal Carotids: no bruits Chest Chest palpation & inspection: no tenderness Resp Effort & Inspection: normal respiratory effort, no audible wheezes, not labored and no stridor Auscultation: no crackles, no rales, no rhonchi and no wheezes Cardio Jugular venous distension: no JVD Rate: regular rate, not bradycardic and not tachycardic Rhythm: regular rhythm Bruits: no carotid bruits Peripheral pulses: Peripheral pulses 2+ throughout GI Inspection: Yes normal to inspection, No abdominal wall ecchymosis and No visible herniation Palpation (GI): Soft to palpation, nontender, no guarding, not rigid and No hepatosplenomegaly present Auscultation: normoactive bowel sounds General: Yes no CVA tenderness Back/Spine/Pelvis Back: no CVA tenderness and No back tenderness Cervical Spine: cervical ROM normal Thoracic/Lumbar Spine: thoracic and lumbar spine normal to inspection, straight leg raise negative bilaterally, No thoraco-lumbar ROM limited and No lumbar spinal tenderness Skin Lesions: no lesions Rashes: no rashes Wounds: no wounds Neuro General: oriented to person, oriented to place, patient oriented x3, CN's II-XI intact bilaterally and No confusion Cranial nerves: Yes Equal, round and reactive pupils present and Yes Normal accommodation reflex present Cognition (Neuro): normal cognition Speech: No Abnormal speech present Gait exam (Neuro): Normal gait present Motor exam (neuro): 5/5 motor strength present throughout Extrem Right upper extremity: full ROM; no cyanosis Left upper extremity: full ROM; no cyanosis Right lower extremity: no edema Left lower extremity: no edema Psych Appearance: grossly normal Mental Status: mental status grossly normal Affect: normal affect Attitude: cooperative Thought process: Normal thought process present Coding Level of Care Code Est Pt Prev Care >65y(94255) Diagnoses Annual physical exam Z00.00 Essential hypertension I10 Hypertension type: essential hypertension Borderline high cholesterol E78.9 Osteopenia of right hip M85.851 Laterality: right Osteopenia location: hip Neutropenia, unspecified type D70.9 Leukopenia type: neutropenia Neutropenia type: unspecified Additional Codes LUIS-7 Assessment Billing - LUIS-7 Assessment Tool: LUSI-7 Assessment 61490 ([id number]) Assessment & Plan Assessment & Plan (1) Annual physical exam: Code(s): Z00.00 - Encounter for general adult medical examination without abnormal findings Category: Medical Plan: As per HPI (2) HTN (hypertension): Code(s): I10 - Essential (primary) hypertension Category: Medical Qualifiers: Hypertension type: essential hypertension Qualified Code(s): I10 - Essential (primary) hypertension Plan: Patient's blood pressure acceptable today in office. Will continue her current dose of hydrochlorothiazide. Goal blood pressures to be below 140/90 (3) Borderline high cholesterol: Code(s): E78.9 - Disorder of lipoprotein metabolism, unspecified Category: Medical Plan: Patient's most recent fasting lipid panel showing improved total cholesterol and LDL. She continues to work on being more physically active and adapting to better eating habits to reduce her cholesterol. (4) Osteopenia: Code(s): M85.80 - Other specified disorders of bone density and structure, unspecified site Category: Medical Qualifiers: Laterality: right Osteopenia location: hip Qualified Code(s): M85.851 - Other specified disorders of bone density and structure, right thigh Plan: Patient has a history of osteopenia, will recheck bone density (5) Leukopenia: Code(s): D72.819 - Decreased white blood cell count, unspecified Category: Medical Qualifiers: Leukopenia type: neutropenia Neutropenia type: unspecified Qualified Code(s): D70.9 - Neutropenia, unspecified Plan: Has a chronic history leukopenia. Will send to hematology for further evaluation. She does report her mother had in her 80s from AML. Orders: Orders XR DEXA axial skeleton Today M85.851 - Other specified disorders of bone density and structure, right thigh, Z78.0 - Asymptomatic menopausal state Microalbumin, Random (w Creat) Today I10 - Essential (primary) hypertension Comprehensive [place]. Panel Fast Today I10 - Essential (primary) hypertension Complete Blood Count no Diff Today I10 - Essential (primary) hypertension Vitamin D 25-OH Total Today E55.9 - Vitamin D deficiency, unspecified Lipid Panel Today E78.9 - Disorder of lipoprotein metabolism, unspecified Referrals Hematology & Oncology Referral D70.9 - Neutropenia, unspecified Patient Instructions: Goal: Blood pressure to be below 140/90, total cholesterol to be below 200 Barriers: Adherence to healthy eating habits and physical activity
== END 2023-11-19 12:50 | disposition home or self-care (01) ==
PROVIDERS: PCP Physician Assistant; Visit Provider Physician Assistant
DX: Z00.00 Encounter for general adult medical examination without abnormal findings (principal); D70.9 Neutropenia, unspecified; I10 Essential (primary) hypertension; E78.9 Disorder of lipoprotein metabolism, unspecified; M85.851 Other specified disorders of bone density and structure, right thigh

== ENCOUNTER → 2023-11-19 10:59 | Outpatient (BNVA) | payer MEDICARE, OTHER, SELFPAY | PROVIDERS: PCP Physician Assistant; Visit Provider Physician Assistant | DX: Z00.01 Encounter for general adult medical examination with abnormal findings (principal); I10 Essential (primary) hypertension; E78.9 Disorder of lipoprotein metabolism, unspecified; M85.851 Other specified disorders of bone density and structure, right thigh; D70.9 Neutropenia, unspecified | CPT/HCPCS: 96127; 99397 ==

== ENCOUNTER → 2024-01-27 14:24 | Outpatient (BNV) | payer MEDICARE, OTHER, SELFPAY | PROVIDERS: PCP Physician Assistant; Referring Provider Physician Assistant; Visit Provider Internal Medicine | DX: D72.819 Decreased white blood cell count, unspecified (principal) | CPT/HCPCS: 99203 ==

== ENCOUNTER 2024-05-04 10:13 | Outpatient (REF) | payer MEDICARE, OTHER, SELFPAY ==
--- NOTE | ~2024-05-04 | MM_ITS ---
EXAMINATION: DXA BONE DENSITY AXIAL HISTORY: Estrogen deficiency TECHNIQUE: Sunpreme Dual energy absorptiometry (DEXA) of the lumbar spine, total left hip, and femoral neck was performed. COMPARISON: Comparison is made with the prior examination dated 04/18/2021. FINDINGS: The bone mineral density of the lumbar spine is 0.914 with a T-score of -2.2, and a Z-score of -1.0. This represents a BMD change of -0.7% compared to the prior exam. This is not statistically significant. The bone mineral density of the left total hip is 0.864 with a T-score of -1.1, and a Z-score of -0.1. This represents a BMD change of -3.9% compared to the prior exam. This is statistically significant. The bone mineral density of the left femoral neck is 0.818 with a T-score of -1.6, and a Z-score of -0.3. This represents a BMD change of 0.2% compared to the prior exam. FRACTURE RISK: The FRAX index suggests a ten year probability of major osteoporotic fracture of 15.5%, and of hip fracture 2.0%. MM/XR DEXA axial skeleton IMPRESSION: Based on bone mineral density, and according to World Health Organization (WHO) criteria, the diagnosis is consistent with osteopenia. All bone density values are in grams per centimeter squared (g/cm2). Statistically, 68% of repeat scans fall within 1 SD (+/- 0.010 g/cm2 for AP spine L1-L4) and 1 SD (+/- 0.012 g/cm2 for femur total) FRAX is a trademark of the [employer]'s [place] [facility], a World Health Organization (WHO) Collaborating Center. Electronically signed by: Lorenzo Davis MD 05/04/2024 12:56 PM EDT
--- NOTE | ~2024-05-04 | MM_ITS ---
EXAMINATION: MM SCREENING DIGITAL BREAST TOMOSYNTHESIS, BILATERAL CLINICAL INFORMATION: Screening. Asymptomatic. COMPARISON: Mammography: Comparison is made with available priors TECHNIQUE: Digital breast mammography with tomosynthesis is performed in both the craniocaudal and mediolateral oblique views along with computer-aided detection (CAD). FINDINGS: There are scattered areas of fibroglandular density (ACR BI-RADS breast composition Category b). There are no significant masses, abnormal calcifications, or other abnormalities. MM/MM tomosynthesis screening BI IMPRESSION: No mammographic evidence of malignancy. ASSESSMENT: BI-RADS BI-RADS 1 - Negative RECOMMENDATION: Routine annual mammography screening. 1 year F/U This examination should not preclude the clinical evaluation of a suspicious palpable abnormality. This patient's information was entered into a reminder system with a target due date for their next mammogram. Electronically signed by: Lorin Park DO 05/10/2024 05:48 PM EDT
== END 2024-05-04 10:14 | disposition home or self-care (01) ==
LOC: HO.MAMMO 10:13
PROVIDERS: PCP Physician Assistant; Visit Provider Physician Assistant
DX: Z12.31 Encounter for screening mammogram for malignant neoplasm of breast (principal); Z13.820 Encounter for screening for osteoporosis; Z78.0 Asymptomatic menopausal state; M85.851 Other specified disorders of bone density and structure, right thigh
CPT/HCPCS: 77063; 77067; 77080

== ENCOUNTER → 2024-05-04 11:00 | Outpatient (BNV) | payer MEDICARE, OTHER, SELFPAY | PROVIDERS: PCP Physician Assistant; Visit Provider Radiology Diagnostic Radiology | DX: E28.39 Other primary ovarian failure (principal) | CPT/HCPCS: 77080 ==

== ENCOUNTER 2024-05-20 13:35 | Outpatient (REF) | payer MEDICARE, OTHER, SELFPAY | END 2024-05-20 13:36 | disposition home or self-care (01) | LOC: HO.XRAY 13:35 | PROVIDERS: PCP Physician Assistant; Visit Provider Physician Assistant | DX: J40 Bronchitis, not specified as acute or chronic (principal) | CPT/HCPCS: 71046 ==

== ENCOUNTER → 2024-05-20 13:40 | Outpatient (BNV) | payer MEDICARE, OTHER, SELFPAY | PROVIDERS: PCP Physician Assistant; Visit Provider Radiology Diagnostic Radiology | DX: M41.34 Thoracogenic scoliosis, thoracic region (principal) | CPT/HCPCS: 71046 ==

== ENCOUNTER 2024-05-21 14:27 | Emergency (ER) | payer MEDICARE, OTHER, SELFPAY ==
[2024-05-21 14:45] VITALS: BP 171/108; PULSE 88; RESP 16; TEMP 36.8; O2SAT 97; BMI 27.8
--- NOTE | 2024-05-21 14:49 | ED_ITS ---
HPI - General Adult General Chief complaint: Recheck/Abnormal Lab/Rx Stated complaint: Flu High Blood Pressure Time Seen by Provider: 05/21/24 21:02 Source: patient Mode of arrival: ambulatory Limitations: no limitations History of Present Illness ED Provider: Dr. Mandie Solis HPI narrative: Patient comes in the emergency room stating that a few days ago she was diagnosed with influenza A. Patient taking Tamiflu. Patient states that she checks her blood pressure frequently at home, and she has noted that while she has been on Tamiflu and being sick with influenza, her high blood pressure has been higher than usual, between 130s systolic to 150s systolic. Patient denies headache chest pain or shortness of breath. Patient states that she has been compliant with her medications, takes hydrochlorothiazide and diltiazem. Patient states that she has had some episodes of diarrhea, no nausea or vomiting, no abdominal pain or UTI symptoms. Related Data Home Medications ?Medication ?Instructions ?Recorded ?Confirmed linaclotide 72 mcg capsule 72 mcg PO QAM 10/29/22 01/27/24 (Linzess) timolol 0.25 % eye drops 1 drp ophthalmic (eye) DAILY 08/06/23 01/27/24 Previous Rx's ?Medication ?Instructions ?Recorded fwoqoqopps-ffbfmnt-vftvlmae 50 1 cap PO Q4H PRN Headache 5 days 10/29/22 mg-325 mg-40 mg capsule #30 caps diltiazem HCl 120 mg 120 mg PO DAILY #90 caps 09/29/23 capsule,extended release 24 hr diltiazem HCl 180 mg 180 mg PO DAILY #30 caps 02/20/24 capsule,extended release 24 hr lorazepam 1 mg tablet 1 mg PO BEDTIME anxiety 15 days 03/04/24 #15 tabs gabapentin 100 mg capsule 100 mg PO BID 14 days #28 caps 03/22/24 hydrochlorothiazide 25 mg tablet 25 mg PO DAILY #90 tabs 04/26/24 oseltamivir 75 mg capsule (Tamiflu) 75 mg PO BID 5 days #10 caps 05/18/24 Allergies Allergy/AdvReac Type Severity Reaction Status Date / Time erythromycin base Allergy Severe Anaphylaxis Verified 05/21/24 14:49 [Erythromycin Base] oxycodone [From Percocet] Allergy Mild Passed Verified 05/21/24 14:49 Out Review of Systems 2 Review of Systems: Constitutional : No Weight loss, No Fever, No Chills, No Night Sweats, No Fatigue, No Malaise ENT/Mouth : No Hearing loss, No Ear Pain, No Nasal Congestion, No Sinus Pain, No Hoarseness, No sore throat, No Rhinorrhea, No Swallowing Difficulty Eyes: No Eye Pain, No Swelling, No Redness, No Foreign Body, No Discharge, No Vision Changes Cardiovascular : No Chest Pain, No SOB, No Dyspnea on Exertion, No Orthopnea, No Edema, No Palpitations on complaining of high blood pressure Respiratory : No Cough, No Sputum, No Wheezing, No Smoke Exposure, No Dyspnea Gastrointestinal : No Nausea, No Vomiting, complaining of a few episodes of Diarrhea, No Constipation, No abdominal Pain, No Hematochezia, No Melena Genitourinary : no irregular bleeding, No Dysuria, No Urinary Frequency, No Hematuria, No Urinary Incontinence, No Urgency, No Flank Pain, No Urinary Flow Changes, No Hesitancy Musculoskeletal : No joint pain, No Myalgias, No Joint Swelling Skin : No Skin Lesions, No rash Neuro : No Weakness, No Numbness, No Paresthesias, No Loss of Consciousness, No Dizziness, No Headache Psych : No Anxiety/Panic, No Depression, No SI/HI/AH/VH, No Social Issues, Heme/Lymph: No Bruising, No Bleeding,No Lymphadenopathy Endocrine : No Polyuria, No Polydipsia, No Temperature Intolerance PMFSH Past Medical History Medical History COVID-19 Postmenopausal HTN (hypertension) Headache Arthritis Anxiety Paroxysmal SVT (supraventricular tachycardia) IBS (irritable bowel syndrome) Surgical History Hx of colonoscopy History of bunionectomy Hx of arthroscopic knee surgery History of surgical removal of ganglion cyst Hx of cholecystectomy H/O cardiac radiofrequency ablation Anal fistula Family History Family History (Updated 01/27/24 @ 14:43 by Sarath [place]) Mother AML (acute myeloblastic leukemia) Brother Diabetes Father Bone cancer Social History Social History Household Members: None Housing: House Alcohol intake: never Patient Tobacco Use Status: Former Tobacco user Tobacco use type: Cigarette e-Cigarette/Vaping Use: Never Used Second Hand Smoke Exposure: No Advance Directives: No Advance Directives Information Provided: No Advance Directives Date on File: 11/30/19 service: No 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 Oriented X3. No acute distress. Eyes: Pupils equal, round and reactive to light. ENT: Pharynx normal. Neck: Normal inspection. Neck supple. No lymph nodes noted. No crepitus CVS: Normal heart rate and rhythm. Pulses normal. Normal S1 and S2 Respiratory: No respiratory distress. Breath sounds normal. No Wheezing. No rales Abdomen: Soft and nontender. No rigidity. No distention. Skin: Skin warm and dry. Normal skin color. Normal skin turgor. Extremities: No lower extremity edema. No Lacerations. No Rash Neuro: Oriented X 3. No motor deficit. No sensory deficit. Moving all extremities. No slurred speech. CN 2 through 12 grossly intact Psych: calm, cooperative, normal affect Course Course Course Narrative: RME performed by Cristal Newman PA-C. Patient is a 68 year old assigned female at presenting to the emergency department with a cough, diarrhea, and feeling generally unwell. Patient states that she has lost 6 lbs. Patient states that she currently has influenza. Detailed physical exam and review of systems are deferred to the asset card clerk. Labs ordered. Patient placed back in the waiting room pending room availability and results. Medical Decision Making Medical Decision Making MDM Narrative: My interpretation of labs: Patient's hematology at baseline, no acute abnormalities,, chemistry shows a potassium of 3.1 which was repleted p.o., normal LFTs Patient had chest x-ray done yesterday, it has not been read by Radiology, however my interpretation: No acute abnormality, no infiltrates Discussed with the patient to make sure she drinks plenty of p.o. fluids especially with electrolytes I offered to the patient medication for diarrhea, patient declined. Also, I discussed with the patient that her blood pressure has been a bit elevated, consistent with having influenza and being on medications. Otherwise asymptomatic no headache no chest pain or shortness of breath. At this time, we will not change the patient's dose of her medication. Discussed with the patient to keep an eye on her blood pressure, have a log and check her blood pressure in 2 different settings such as home and a pharmacy. Patient will follow-up with the primary care physician and her director of sports performance Differential Diagnosis Differential Diagnoses: The differential diagnosis associated with the presentation includes (Influenza, dehydration, hypokalemia) Lab Data MDM Lab Attestation statement: I reviewed the patient's lab results. 05/21/24 14:59 05/21/24 14:59 Labs: Lab Results 05/21/24 Range/Units 14:59 WBC 3.9 L (4.8-10.8) X10*3/uL RBC 5.48 (4.20-5.50) X10*6/uL Hgb 16.1 H (12.0-16.0) g/dl Hct 46.2 (37.0-47.0) % MCV 84.3 (80.0-98.0) fL MCH 29.4 (27.0-33.0) pg MCHC 34.8 (31.0-35.0) g/dl RDW 12.0 (11.0-16.0) % Plt Count 309 (160-400) X10*3/uL MPV 9.4 (9.4-12.3) fL Immature Gran % (Auto) 0.0 (0.0-0.4) % Neut % (Auto) 54.8 (45-73) % Lymph % (Auto) 36.2 (20-40) % [place] % (Auto) 8.2 (2-11) % Eos % (Auto) 0.3 (0-4) % Baso % (Auto) 0.5 (0-2) % Lymph # (Auto) 1.4 (1.2-4.9) X10*3/uL [place] # (Auto) 0.3 (0.1-1.2) X10*3/uL Eos # (Auto) 0.0 (0.0-0.4) X10*3/uL Baso # (Auto) 0.0 (0.0-0.2) X10*3/uL Abs Immat Gran (auto) 0.00 (0.00-0.03) X10*3/uL Absolute Neuts (auto) 2.1 (2.0-8.3) x10*3/uL Absolute Nucleated RBC 0.000 (0.0-0.012) X10*3/uL Nucleated RBC % (auto) 0.0 (0.0-0.2) /100WBC Sodium 138 (135-145) mmol/L Potassium 3.1 L (3.3-5.1) mmol/L Chloride 98 (96-108) mmol/L Carbon Dioxide 30 H (22-29) mmol/L Anion Gap 13 (12-20) BUN 17 H (9-16) mg/dL Creatinine 0.80 (0.5-1.4) mg/dL Estim Creat Clear Calc 69.4 Estimated GFR > 60 Random Glucose 128 H (60-115) mg/dL Calcium 9.5 (8.4-10.2) mg/dL Magnesium 2.0 (1.6-2.6) mg/dL Total Bilirubin 0.5 (0.0-1.0) mg/dL AST 31 (5-31) U/L ALT 45 H (0-31) U/L Alkaline Phosphatase 64 (39-117) U/L Total Protein 7.4 (6.5-8.0) g/dL Albumin 4.3 (3.5-5.0) g/dL Independent Interpretation I performed an independent interpretation of an: Plain X-Ray Discharge Plan Discharge Clinical Impression: Hypokalemia HTN (hypertension) Qualifiers: Hypertension type: essential hypertension Qualified Code(s): I10 - Essential (primary) hypertension Patient Disposition: Home, Self-Care Instructions: Potassium Content of Foods List (ED), Hypokalemia (ED), Hypertension (ED) Prescriptions: No Action diltiazem HCl 120 mg capsule,extended release 24hr 120 mg PO DAILY Qty: 90 3RF diltiazem HCl 180 mg capsule,extended release 24hr 180 mg PO DAILY Qty: 30 3RF lorazepam 1 mg tablet 1 mg PO BEDTIME 15 Days Qty: 15 1RF gabapentin 100 mg capsule 100 mg PO BID 14 Days Qty: 28 0RF hydrochlorothiazide 25 mg tablet 25 mg PO DAILY Qty: 90 3RF oseltamivir [Tamiflu] 75 mg capsule 75 mg PO BID 5 Days Qty: 10 0RF Linzess 72 mcg capsule 72 mcg PO QAM qfemaezbpv-yisqouj-muyfyora 50-325-40 mg capsule 1 cap PO Q4H PRN (Reason: Headache) 5 Days Qty: 30 0RF timolol 0.25 % drops 1 drp ophthalmic (eye) DAILY Print Language: Haitian
[2024-05-21 15:17] LABS: MANUAL DIFF FLAG NO
[2024-05-21 15:21] LABS: Basophils Percent Auto 0.5 % (0-2); Eosinophils Percent Auto 0.3 % (0-4); Hematocrit 46.2 % (37.0-47.0); Hemoglobin 16.1 g/dl (12.0-16.0); Lymphocytes Absolute Auto 1.4 X10*3/uL (1.2-4.9); Lymphocytes Percent Auto 36.2 % (20-40); Mean Corpuscular HGB Conc 34.8 g/dl (31.0-35.0); Mean Corpuscular Hemoglobin 29.4 pg (27.0-33.0); Mean Corpuscular Volume 84.3 fL (80.0-98.0); Mean Platelet Volume 9.4 fL (9.4-12.3); Monocytes Absolute Auto 0.3 X10*3/uL (0.1-1.2); Monocytes Percent Auto 8.2 % (2-11); Neutrophils Absolute Auto 2.1 x10*3/uL (2.0-8.3); Neutrophils Percent Auto 54.8 % (45-73); Platelet Count 309 X10*3/uL (160-400); Red Blood Count 5.48 X10*6/uL (4.20-5.50); White Blood Count 3.9 X10*3/uL (4.8-10.8)
[2024-05-21 15:34] LABS: Alanine Aminotransferase 45 U/L (0-31); Albumin Level 4.3 g/dL (3.5-5.0); Anion Gap 13 (12-20); Aspartate Amino Transferase 31 U/L (5-31); Blood Urea Nitrogen 17 mg/dL (9-16); Calcium 9.5 mg/dL (8.4-10.2); Carbon Dioxide 30 mmol/L (22-29); Chloride 98 mmol/L (96-108); Creatinine Clr Calc Pharmacy 69.4; Estimated Glomerular Filt Rate > 60; Glucose Random 128 mg/dL (60-115); Potassium 3.1 mmol/L (3.3-5.1); Sodium 138 mmol/L (135-145); Total Protein 7.4 g/dL (6.5-8.0)
[2024-05-21 15:54] LABS: Bilirubin Total 0.5 mg/dL (0.0-1.0)
[2024-05-21 16:10] LABS: Alkaline Phosphatase 64 U/L (39-117)
[2024-05-21 20:57] VITALS: BP 155/74; PULSE 95; RESP 20; TEMP 36.6; O2SAT 96
[2024-05-21] MEDS: Potassium Chloride Packet 20 MEQ PACKET 40 MEQ PO (21:23)
[2024-05-21 21:28] VITALS: BP 155/74; PULSE 95; RESP 20; TEMP 36.6; O2SAT 96
== END 2024-05-21 21:30 | disposition home or self-care (01) ==
PROVIDERS: Physician Assistant Medical; Emergency Provider Emergency Medicine; PCP Physician Assistant
DX: E87.6 Hypokalemia (principal); R79.89 Other specified abnormal findings of blood chemistry; I10 Essential (primary) hypertension; Z79.899 Other long term (current) drug therapy; Z87.891 Personal history of nicotine dependence
CPT/HCPCS: 36415; 80053; 83735; 85025; 99283; 99284

== ENCOUNTER 2024-08-23 09:58 | Outpatient (AMB) | payer MEDICARE, OTHER, SELFPAY ==
[2024-08-23 10:15] VITALS: BP 120/80; PULSE 72; BMI 28.2
--- NOTE | 2024-08-23 10:15 | A.OFFVIS_ITS ---
Vital Signs 08/23/24 10:15 Height 5 ft 5 in Weight 169 lb 12.095 oz BMI 28.2 BP 120/80 Blood Pressure Location Lt brachial Position Sitting Pulse 72 Intake Visit Reasons: 1 yr fu Intake Note: 1 year follow-up with ekg feeling good Allergies erythromycin base (Erythromycin Base) Allergy (Severe, Verified 05/21/24 14:49) Anaphylaxis oxycodone (From Percocet) Allergy (Mild, Verified 05/21/24 14:49) Passed Out Medication List - Last Reconciled 08/23/24 by Gurvinder Horne MD ulcnajerco-uvitctb-vzxabslk 50-325-40 mg 1 cap PO Q4H PRN 5 days diltiazem HCl CD 180 mg PO DAILY gabapentin 100 mg PO BID PRN hydrochlorothiazide 25 mg PO DAILY linaclotide (Linzess) 72 mcg PO QAM lorazepam 1 mg PO BEDTIME 15 days timolol 0.25% 1 drp ophthalmic (eye) DAILY HPI Comments Details: Cristal comes for follow-up. January and May she had significantly elevated blood pressure readings at which time her meds were increased. Since then she has been done well and blood pressure is well controlled. She remains active and still continues to hike. She has twice a month episodes of palpitations that come on randomly without any clear triggers. She is able to control them with vagal maneuvers. She has not had any progressive increased symptoms. She denies any lightheadedness, syncope. Denies any exertional chest pain. [facility] Medical History COVID-19 Postmenopausal HTN (hypertension) Headache Arthritis Anxiety Paroxysmal SVT (supraventricular tachycardia) IBS (irritable bowel syndrome) Surgical History Hx of colonoscopy History of bunionectomy Hx of arthroscopic knee surgery History of surgical removal of ganglion cyst Hx of cholecystectomy H/O cardiac radiofrequency ablation Anal fistula Family History Mother AML (acute myeloblastic leukemia) Brother Diabetes Father Bone cancer Social History Household Members: None Housing: House Alcohol intake: never Patient Tobacco Use Status: Former Tobacco user Tobacco use type: Cigarette e-Cigarette/Vaping Use: Never Used Second Hand Smoke Exposure: No Advance Directives Date on File: 11/30/19 service: No 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 occupational status: 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 Gender identity: Female Cognitive needs: No Hearing needs: No Vision needs: Yes Review of Systems Const Denies chills, Denies fatigue, Denies fever(s), Denies frequent falls, Denies weakness, Denies weight gain and Denies weight loss ENT Denies dizziness Card Denies chest pain, Denies leg edema, Denies lightheadedness, Denies palpitations, Denies dyspnea, Denies dyspnea on exertion, Denies orthopnea and Denies other (loss of consciousness) Resp Denies cough, Denies dyspnea and Denies dyspnea on exertion GI Denies hematochezia and Denies change in stool character Musc Denies abnormal gait, Denies muscle weakness, Denies numbness, Denies radiating pain into limb and Denies tingling Neuro Denies abnormal gait, Denies dizziness, Denies frequent falls, Denies numbness, Denies tingling and Denies weakness Endo Denies fatigue and Denies palpitations Physical Exam Vital Signs: Last Vital Signs Pulse 72 08/23/24 10:15 BP 120/80 08/23/24 10:15 BMI result Body Mass Index 28.2 Const General: comfortable, no acute distress, alert, awake and well groomed Nutritional Appearance: thin Orientation/consciousness: patient oriented x3 Limitations: no limitations Neck Neck: Yes trachea midline and Yes supple Resp Effort & Inspection: normal respiratory effort Auscultation: clear to auscultation bilaterally Cardio Jugular venous distension: no JVD Palpation: normal PMI Rate: regular rate Rhythm: regular rhythm Heart sounds: S1 normal heart sound present and S2 normal heart sound present GI Auscultation: normal bowel sounds Skin General skin exam: no rashes or lesions noted Neuro General: patient oriented x3 and no focal motor deficits Extrem General: Yes no clubbing, cyanosis or edema Psych Appearance: grossly normal Office Procedures EKG Details: EKGs normal sinus rhythm with sinus arrhythmia otherwise no significant ST T wave changes 06055-[id number], Complete Assessment & Plan Assessment & Plan (1) SVT (supraventricular tachycardia): Code(s): I47.1 - Supraventricular tachycardia Category: Medical Plan: Supraventricular tachycardia with dual AV megan physiology in the past. Continues to have intermittent episodes. In the past has attempted repeat ablation but without success. Has symptoms intermittently but easily able to control with vagal maneuvers. She has not significantly limited and has not had any ED presentation. Continue Cardizem therapy. Avoidance of stimulants was discussed. Stress mitigation strategies were discussed. (2) HTN (hypertension): Code(s): I10 - Essential (primary) hypertension Category: Medical Qualifiers: Hypertension type: essential hypertension Qualified Code(s): I10 - Essential (primary) hypertension Plan: Hypertension which is currently well optimized. Advised to monitor blood pressure at home maintain a log. Continue current therapy with Cardizem and hydrochlorothiazide. Importance of good blood pressure control was discussed. She understands agrees. Encouraged to maintain activity level as tolerated. Low-salt diet was discussed. Stress mitigation strategies were discussed. Follow up in the clinic in 1 year's time, sooner p.r.n.. Thank you for allowing me to partake in her care Medications: Changed From gabapentin 100 mg PO BID 14 days 28 caps 0RF M54.30 - Sciatica, unspecified side To gabapentin 100 mg PO BID PRN M54.30 - Sciatica, unspecified side Coding Level of Care Code Est Pt Level 4 (24971) Complex EM visit Add On G2211 Diagnoses SVT (supraventricular tachycardia) I47.1 Essential hypertension I10 Hypertension type: essential hypertension CPT Codes EKG - CPT: 84040-Umilbmjrnwemkzwnc, Complete ([id number])
--- OUTSIDE RECORDS SUMMARY | 2024-08-23 10:38 | XMS_ITS | Patient Health Record ---
Author Organization [facility] Address [address] [place] [address] Care Team Providers Care Primary Special Educator Name Role Phone Mitch Anderson Primary Care Provider Unavailab Chon Villalba Jr Unavailable [phone] Chon Castro Unavailable Unavailable Allergies Allergen (clinical drug ingredient) Drug/Non Drug Allergy documented on EMR Reaction Allergy Type Onset Date Status acetaminophen / oxycodone percocet (uncoded) Unknown Allergy Active erythromycin erythromycin (uncoded) Unknown Allergy Active Reason For Referral No Information Medications Medication SIG (Take, Route, Fr equency, Duration) Notes Start Date End Date Status Fiorinal 50-325-40 MG 1 capsule as needed Orally prn Active Flonase 50 MCG/ACT 1 spray in each nost ril Nasally Once a day Active Linzess 72 MCG 1 PO Once a day for 90 days 020 Active Immunizations Vaccine Route Administration Date Status Comme nts Influenza Unknown 11/06/2018 Refused Problems Problem Type SNOMED Code ICD Code Onset Dates Problem Status W/U Status Risk Notes Problem 302532924 Colon cancer screening (Z12.11) Active confirmed Problem 248573822 Irritable bowel syndrome with constipation (K58.1) Active confirmed Plan Of Treatment Future Test Test Name Order Date COLONOSCOPY 05/19/2014 COLONOSCOPY 11/06/2018 Insurance Providers Payer Name Payer Address Payer Phone Subscriber Number Group Number Insured Name Patient Relationship to Insured Coverage Start Date Coverage End Date [employer] [address] [place] [address] [id number] BERENICE MARSHALL Self - patient is the insured Medical (General) History Medical History History ICD Code irritable bowel syndrome history of colon polyps, last colonoscop y 07/01 anal fistula 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
--- OUTSIDE RECORDS SUMMARY | 2024-08-23 10:39 | XMS_ITS | Patient Health Record ---
Author Organization [facility] Address [address] [place] [address] Care Team Providers Care Railroad Car Painter Name Role Phone Mitch Anderson Primary Care Provider Unavailab Eldon Kaur Unavailable [phone] Allergies Allergen (clinical drug ingredient) Drug/Non Drug Allergy documented on EMR Reaction Allergy Type Onset Date Status Biaxin breathing difficulty, hives Drug Allergy Active erythromycin Erythromycin breathing difficulty, hives Drug Allergy Active azithromycin Zithromax Z-Crow breathing difficulty, hives Drug Allergy Active codeine Codeine nausea and vomiting Drug Allergy Active general headaches Drug Allergy Active Reason For Referral No Information Medications Medication SIG (Take, Route, Frequency, Duration) Notes Start Date End Date Status Hyoscyamine Active Social History Tobacco Use: Social History Observation Description Date Details (start date - stop date) Never Smoker NA - NA Tobacco Use/Smoking Question Answer Notes Are you a: nonsmoker Additional Findings: Tobacco Non-User Current no n-smoker Alcohol Screen Question Answer Notes Did you have a drink containing alcohol in the p ast year? No Points 0 Interpretation Negative Tobacco use other than smoking: Question Answer Notes Are you an other tobacco user? No Problems Problem Type SNOMED Code ICD Code Onset Dates Problem Status W/U Status Risk Notes Problem Acquired hallux valgus (20212915) Hallux valgus (acquired), left foot (M20.12) Active confirmed Problem Acquired hallux valgus (95408926) Hallux valgus (acquired), right foot (M20.11) Active confirmed Plan Of Treatment Pending Test Test Name Order Date X ray : Foot, left 3V 03/26/2017 83805, [id number]- Neuroma/Injection 01/30/20 11 Next Appt Details Provider Name:Eldon Roy , 10/05/2024 09:30:00 AM, [address] [facility], [place], [address], Insurance Providers Payer Name Payer Address Payer Phone Subscriber Number Group Number Insured Name Patient Relationship to Insured Coverage Start Date Coverage End Date Medicare National [employer] [address] [place] [address] [id number] Cristal Marshall Self - patient is the insured [employer] [address] [place] [address] [id number] Cristal Marshall Self - patient is the insured Medical (General) History Medical History History ICD Code chicken pox sciatica IBS-C Surgical History Surgery Date(Month/Year) knee surgery 1991 cholecystectomy 2004 Gall bladder removed ? Ganglion cyst tx 1989 Ablation 1999 Anthroscopy 1979 Anal Fissure 2004
== END 2024-08-23 10:43 | disposition home or self-care (01) ==
LOC: HO.HCS 09:59
PROVIDERS: PCP Physician Assistant; Visit Provider Internal Medicine Cardiovascular Disease
DX: I47.10 Supraventricular tachycardia, unspecified (principal); I10 Essential (primary) hypertension
CPT/HCPCS: 93010; 99214; G2211

== ENCOUNTER → 2024-08-23 09:58 | Outpatient (BNVA) | payer MEDICARE, OTHER, SELFPAY | PROVIDERS: PCP Physician Assistant; Visit Provider Internal Medicine Cardiovascular Disease | DX: I10 Essential (primary) hypertension (principal); I47.19 Other supraventricular tachycardia; R94.31 Abnormal electrocardiogram [ECG] [EKG]; Z79.899 Other long term (current) drug therapy | CPT/HCPCS: 93005; 99212 ==

== ENCOUNTER 2024-11-02 14:10 | Outpatient (REF) | payer MEDICARE, OTHER, SELFPAY ==
--- NOTE | ~2024-11-02 | XR_ITS ---
EXAMINATION: XR FOOT, RIGHT CLINICAL INFORMATION: S99.921A - Unspecified injury of right foot, initial encounter COMPARISON: None available. TECHNIQUE: AP, lateral, and oblique views of the right foot. FINDINGS: Postoperative changes are evident consistent with bunionectomy with 2 screws placed across the neck of the first metatarsal. There is mature bone bridging the surgical site. There is mild first MTP joint degenerative change with minimal joint space narrowing and minute marginal osteophytes. There is a fracture across the neck of the fifth proximal phalanx. There are osteophytes involving medial malleolus. There is an os trigonum. There are small calcaneal enthesophytes. XR/XR foot RT min 3V IMPRESSION: There is a fracture involving the neck of the fifth proximal phalanx. Changes from remote bunionectomy. 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 Electronically signed by: Kadeem Victor MD 11/02/2024 02:39 PM EDT
--- OUTSIDE RECORDS SUMMARY | 2024-11-02 17:58 | XMS_ITS | Clinical Summary ---
Author Organization [facility] Address [address] [place] [address] Phone Care Team Providers Care Television Station Manager Name Role Phone Tejinder Pride DO Primary Care Provider Allergies Active Allergy Reactions Criticality Noted Date Comments Erythromycin Anaphylaxis,Swelling High 10/16/2017 Medications hydroCHLOROthia zide (HYDRODIURIL) 25 MG tablet 11/23/2020 Active butalbital-acet aminophen-caffe ine (FIORICET, ESGIC) 50-325-40 mg per tablet Take 1 tablet by mouth every 4 (four) hours as needed for pain (specific location in comments). Active linaCLOtide (LINZESS) 72 mcg capsule 10/27/2016 Active dilTIAZem 180 mg 24hr Take 180 mg by mouth daily. 02/06/2024 Active Active Problems Problem Noted Date Diagnosed Date High risk human papilloma virus (HPV) infection of cervix 10/22/2018 Overview (01/13/2023): History of LGSIL 2018: NIL, +HPV 2019: NIL/HPV pos 2022: ASCUS -> colpo benign Plan: repeat pap in 1 year Assessment & Plan (07/19/2024 8:36 AM EDT): Discussed continued surveillance, shared decision making utilized to space out screening to q2 years unless high grade dysplasia. Assessment & Plan (12/16/2022 10:45 AM EDT): Pap done today (cytology only). Chronic HPV positive. Would only colpo if abnormal cytology. Assessment & Plan (10/22/2018 10:37 AM EDT): Pap today Immunizations Immunization Administration Dates Next Due COVID-19 (Pre-12/09) Pfizer Vaccine, mRNA, PF 04/27/2020 INFLUENZA, SPLIT VIRUS, TRIV ALENT W/ PRESERVATIVE IM 01/06/2011 Influenza High-Dose Quadriva lent Preservative Free IM 11/26/2022 Influenza Quadrivalent MDCK Preservative Free IM 11/14/2021 Influenza Quadrivalent Preservative Free IM 10/2020,10/11/2019 Influenza Quadrivalent w/ Preservative IM 2018 Pneumococcal conjugate PCV20 10/30/2022 Tdap 06/17/2022,03/19/2018 Zoster recombinant 02/19/2019,02/05/2019, 019 Family History Medical History Relation Comments Bone cancer Father Diabetes Maternal Grandmother Leukemia Mother Colon cancer Paternal Grandfather Relation Status Comments Brother 1 Alive Brother 2 Alive Father Maternal Grandmother Mother Paternal Grandfather Social History Tobacco Use Types Packs/Day Years Used Date Smoking Tobacco: Never Smokeless Tobacco: Never Tobacco Cessation:Counseling Given: Not Answered Alcohol Use Standard Drinks/Week Comments No 0 (1 standard drink = 0.6 oz pur e alcohol) Education Answer Date Recorded Are you interested in more education? Not on surinder e 06/14/2022 Are you concerned about learning? Not on file 06/14/2022 No 06/14/2022 No 06/14/2022 Digital Access Answer Date Recorded No 07/13/2022 No 07/13/2022 Reliable internet access at home? Not on file 07/13/2022 Device with a working camera? Not on file Comments No Sex and Gender Information Value Date Recorded Sex Assigned at Female 07/12/2024 12:35 PM EDT Legal Sex Female 2:45 PM EDT Gender Identity Female 07/12/2024 12:35 PM EDT Sexual Orientation Straight 07/12/2024 12 :35 PM EDT Last Filed Vital Signs Vital Sign Reading Time Taken Comments Blood Pressure 132/84 07/19/2024 8:01 AM EDT Pulse - - Temperature - - Respiratory Rate - - Oxygen Saturation - - Inhaled Oxygen Concentration - - Weight 76.2 kg (168 lb) 12/16/2022 10:15 AM EDT Height 165.1 cm (5' 5 ) 12/16/2022 10:15 AM EDT Body Mass Index 27.96 12/16/2022 10:15 AM EDT Plan of Treatment Health Maintenance Due Date Last Done Comments LIPID PANEL 1955 POTASSIUM LEVEL 1956 DEPRESSION SCREENING 1968 HEPATITIS C SCREENING 1974 SCREENING FOR DIABETES 11/10/1991 MAMMOGRAM 1996 COLOGUARD 2001 COLONOSCOPY 2001 COLORECTAL CANCER SCREENING 2001 FIT TEST 2001 FOBT 2001 SIGMOIDOSCOPY 2001 VIRTUAL COLONOSCOPY 2001 OSTEOPOROSIS SCREENING INITIAL (ONE-TIME) 2021 INFLUENZA VACCINE (#1) 2024 , 11/26/2022, 11/14/2021, Additional history exists PAP SMEAR 07/19/2025 07/19/2024, 11/19, 10/22/2018, Additional history exists Adult Td,Tdap Booster 06/17/2032 06/17/2022, 019 ZOSTER VACCINES Completed 02/19/2019, 01/18, 12/01/2018 PNEUMOCOCCAL VACCINES (50+ years) Completed 10/30/2022 RSV VACCINE Completed 04/17/2023 COVID-19 VACCINE Completed 04/27/2024, , 04/17/2023, Additional history exists SMOKING STATUS SCREENING (Once After 26 Yrs) Completed 07/19/2024 HEPATITIS A VACCINES Aged Out No long er eligible based on patient's age to complete this topic HIB VACCINES Aged Out No longer eligi ble based on patient's age to complete this topic MENINGOCOCCAL VACCINES (ACWY) Aged Out No longer eligible based on patient's age to complete this topic MENINGOCOCCAL VACCINES (B) Aged Out N o longer eligible based on patient's age to complete this topic Medical Devices Not on file Procedures Procedure Name Priority Date/Time Associated Diagnosis Comments PAP TEST Routine 07/19/2024 12:00 AM EDT from Last 3 Months or Most Recently Relevant to Health Maintenance Results * Pap Test (07/19/2024 12:00 AM EDT) 07/19/2024 07/20/2024 10: 53 AM EDT Narrative SEE NARRATIVE - 07/26/2024 11:10 AM EDT [address] [address] Senior Systems Software Engineer: Lex Flor MD HEAD BUTLER Cytology Report FINAL DIAGNOSIS A. PAP SMEAR (THIN PREP) CE: SPECIMEN ADEQUACY: Satisfactory for evaluation; transformation zone present. INTERPRETATION: NEGATIVE FOR INTRAEPITHELIAL LESION OR MALIGNANCY. Atrophy. Electronically Signed Out By: DAWN James(ASCP) DAWN Mancuso(ASCP) The Pap test is a screening test primarily for squamous cancers and precursors and has associated false-negative and false-positive results. New technologies such as liquid-based preparations may decrease but will not eliminate all false-negative results. Regular sampling and follow-up of unexplained clinical signs and symptoms are recommended to minimize false negative results. CLINICAL HISTORY Date of Last Menstrual Period: Not Provided Menstrual History: Post Menopausal Other Clinical Conditions: Diagnostic Pap Abnormal PAP: ASCUS, 2022 SPECIMEN SOURCE A: PAP SMEAR (THIN PREP) CE Patient Name: BERENICE MARSHALL : 1955 (Age: 68) Sex: F Institution: [facility] Location: [facility] Date of Collection: 07/19/2024 Date of Reported: 07/26/2024 11:10 Results to: Bella Carroll MD us Bella Carroll MD CYTOLOGY ORDERABLES Final Res ult SEE NARRATIVE from Last 3 Months or Most Recently [place] [id number] [facility] EXTENSION MEDICARE SUPPLEMENT MEDICARE PART A & B [facility] MEDICARE SUPPLEMENT MEDICARE PART A & B [employer] MEDICARE SUPPLEMENT MEDICARE PART A & B [facility] MEDICARE SUPPLEMENT [facility] MEDICARE SUPPLEMENT MEDICARE PART A & B [employer] MEDICARE SUPPLEMENT MEDICARE PART A & [facility] MEDICARE PART A & B Care Teams Television Station Manager Relationship Specialty Start Date End Date Shannen DO Tejinder [address] [address] PCP - General Family Medicine 10/16/17 Additional Source Comments The information contained in this document represents components of the legal health record. It is not the complete legal health record.[facility]
--- OUTSIDE RECORDS SUMMARY | 2024-11-02 17:58 | XMS_ITS | Patient Health Record ---
Author Organization [facility] Address [address] [place] [address] Care Team Providers Care Gun Sealing Machine Operator Name Role Phone Mitch Anderson Primary Care Provider Unavailab Chon Villalba Jr Unavailable [phone] Chon Castro Unavailable Unavailable Allergies Allergen (clinical [...] Problem Status W/U Status Risk Notes Problem 661755823 Colon cancer screening (Z12.11) Active confirmed Problem 399334428 Irritable bowel syndrome with constipation (K58.1) Active confirmed Plan Of Treatment Future Test Test Name Order Date COLONOSCOPY 05/19/2014 COLONOSCOPY 11/06/2018 Next Appt Details Provider Name:Chon sommer Jr, 01/17/2025 01:35:00 PM, [address], [address], [place], [address], Insurance Providers Payer Name Payer Address Payer Phone Subscriber Number Group Number Insured Name Patient Relationship to Insured Coverage Start Date Coverage End Date [facility] IN[facility] [address] [place] [address] [id number] BERENICE MARSHALL Self - patient is the insured Medical (General) History Medical History History ICD Code irritable bowel syndrome history of colon polyps, last colonoscop y 07/01 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
--- OUTSIDE RECORDS SUMMARY | 2024-11-02 17:58 | XMS_ITS | Patient Health Record ---
Author Organization [facility] Address [address] [place] [address] Care Team Providers Care Camp Nurse Name Role Phone Mitch Anderson Primary Care Provider Unavailab Eldon Kaur Unavailable [phone] Allergies Allergen (clinical drug ingredient) Drug/Non Drug Allergy documented on EMR Reaction Allergy Type Onset Date Status Biaxin breathing difficulty, hives Drug Allergy Active Codeine Phosphate nausea and vomiting Drug Allergy Active erythromycin Erythromycin breathing difficulty, hives Drug Allergy Active azithromycin Zithromax Z-Crow breathing difficulty, hives Drug Allergy Active general headaches Drug Allergy Active Reason For Referral No Information Medications Medication SIG (Take, Route, Frequency, Duration) Notes Start Date End Date Status Linzess 72 MCG 1 capsule at least 3 0 minutes before the first meal of the day on an empty stomach Orally Once a day Active Timolol Maleate 0.5 % 1 drop into affect ed eye Ophthalmic Once a day Active LORazepam 1 MG 1 tablet at bedtime as needed Orally Once a day Active Hyoscyamine Not-Taki ng hydroCHLOROthiazide 25 MG 1 tablet in th e morning Orally Once a day Active dilTIAZem HCl ER 180 MG 1 tablet Orally Once a day Active Immunizations Vaccine Route Administration Date Status Comme nts Influenza Unknown 11/18/2023 Administered Social History Tobacco Use: Social History Observation Description Date Details (start date - stop date) Never Smoker NA - NA Tobacco use other than smoking: Question Answer Notes Are you an other tobacco user? No Tobacco Control (Standard) Question Answer Notes Tobacco use: Nonsmoker Additional Findings: Tobacco non-user Current no nsmoker AUDIT-C (Standard) Question Answer Notes Did you have a drink containing alcohol in the p ast year? No Points 0 Interpretation Negative Problems Problem Type SNOMED Code ICD Code Onset Dates Problem Status W/U Status Risk Notes Problem Plantar wart (51994961) Plantar wart (B07.0) Active confirmed Problem Acquired hallux valgus (64783840) Hallux valgus (acquired), left foot (M20.12) Active confirmed Problem Onychomycosis (265121063) Onychomycosis (B35.1) Active confirmed Vital Signs Blood pressure diastolic 80 mm Hg 10/05/2024 Height 5ft5in in 10/05/2024 Blood pressure systolic 128 mm Hg 10/05/2024 Weight 170 lbs 10/05/2024 BMI 28.29 kg/m2 10/05/2024 Procedures Procedure Date Ordered Date Performed Result Body Sit e 03516-XXBNLQJ NAIL, 1-5 10/05/2024 N/A 68984-Gtgp Destruction, 1-14 10/05/2024 N/A Encounters Encounter Location Date Provider Diagnosis [facility] [address] 10/05/2024 Eldon Roy Plantar wart B07.0 ; Left foot pain M79.672 ; Pain in left foot M79.672 ; Pain in left ankle and joints of left foot M25.572 ; Bursitis of left foot M77.52 ; Hallux valgus (acquired), left foot M20.12 ; Onychomycosis B35.1 and Pain in left toe(s) M79.[address] [facility] [address] 10/05/2024 Eldon Roy Assessments Encounter Date Diagnosis (ICD Code) Assessment Notes Treatment Notes Treatment Clinical Notes Section Notes 10/05/2024 Plantar wart (ICD-10 - B07.0) 10/05/2024 Left foot pain (ICD-10 - M79.672) 10/05/2024 Pain in left foot (ICD-10 - M79.672) 10/05/2024 Pain in left ankle and joints of left foot (ICD-10 - M25.572) 10/05/2024 Bursitis of left foot (ICD-10 - M77.52) 10/05/2024 Hallux valgus (acquired), left foot (ICD-10 - M20.12) 10/05/2024 Onychomycosis (ICD-10 - B35.1) 10/05/2024 Pain in left toe(s) (ICD-10 - M79.675) Plan Of Treatment Pending Test Test Name Order Date X ray : Foot, left 3V 03/26/2017 X ray : Foot, left 3V 10/05/2024 09290-XGORUTQ NAIL, 1-5 10/05/2024 30209-Mweo Destruction, 1-14 10/05/2024 28041, J0702- Neuroma/Injection 01/30/20 11 Next Appt Details Provider Name:Eldon Roy , 01/18/2025 10:00:00 AM, [address] [place], [address], Insurance Providers Payer Name Payer Address Payer Phone Subscriber Number Group Number Insured Name Patient Relationship to Insured Coverage Start Date Coverage End Date Medicare National Govt [facility] [address] [facility] [address] [id number] Cristal Marshall Self - patient is the insured 2 [employer] [address] [place] [address] [id number] Cristal Marshall Self - patient is the insured Medical (General) History Medical History History ICD Code chicken pox sciatica IBS-C High Blood Pressure Warts Measles Surgical History Surgery Date(Month/Year) knee surgery 1992 cholecystectomy 2004 Gall bladder removed Ganglion cyst tx 1989 Ablation 1999 Anthroscopy 1980 Anal Fissure 2005 bunionectomy, Right 2010
== END 2024-11-02 14:11 | disposition home or self-care (01) ==
LOC: HO.XRAY 14:10
PROVIDERS: PCP Physician Assistant; Visit Provider Physician Assistant
DX: S92.511A Displaced fracture of proximal phalanx of right lesser toe(s), initial encounter for closed fracture (principal); X58.XXXA Exposure to other specified factors, initial encounter
CPT/HCPCS: 73630

== ENCOUNTER → 2024-11-02 14:14 | Outpatient (BNV) | payer MEDICARE, OTHER, SELFPAY | PROVIDERS: PCP Physician Assistant; Visit Provider Radiology Diagnostic Radiology | DX: S92.514A Nondisplaced fracture of proximal phalanx of right lesser toe(s), initial encounter for closed fracture (principal) | CPT/HCPCS: 73630 ==

== ENCOUNTER 2024-11-15 06:58 | Outpatient (REF) | payer MEDICARE, OTHER, SELFPAY ==
--- OUTSIDE RECORDS SUMMARY | 2024-11-15 07:00 | XMS_ITS | Clinical Summary ---
Author Organization [facility] Address [address] [place] [address] Phone Care Team Providers Care Historic Interpreter Name Role Phone Tejinder Pride DO Primary [...] SEE NARRATIVE - 07/26/2024 11:10 AM EDT [address] [address] Senior Clerk: Lex Flor MD COOLER DELIVERER Cytology Report FINAL DIAGNOSIS A. PAP SMEAR [...] : 1955 (Age: 68) Sex: F Institution: [facility] Location: [facility] Date of Collection: 07/19/2024 Date of Reported: 07/26/2024 11:10 Results to: Bella Carroll MD us Bella Carroll MD CYTOLOGY ORDERABLES Final Res ult SEE NARRATIVE from Last 3 Months or Most Recently [id number] [facility] EXTENSION MEDICARE SUPPLEMENT MEDICARE PART A & B [facility] MEDICARE SUPPLEMENT MEDICARE PART A & B [facility] [employer] MEDICARE SUPPLEMENT MEDICARE PART A & B [facility] MEDICARE SUPPLEMENT [facility] MEDICARE SUPPLEMENT MEDICARE PART A & B [employer] MEDICARE SUPPLEMENT MEDICARE PART A & B [facility] SUPPLEMENT MEDICARE PART A & B Care Teams Historic Interpreter Relationship Specialty Start Date End Date Shannen DO Tejinder [address] [address] PCP - General Family Medicine 10/16/17 Additional Source Comments The information contained in this document represents components of the legal health record. It is not the complete legal health record.[facility]
--- OUTSIDE RECORDS SUMMARY | 2024-11-15 07:00 | XMS_ITS | Patient Health Record ---
Author Organization [facility] Address [address] [place] [address] Care Team Providers Care Manager Video Name Role Phone Mitch Anderson Primary Care Provider Unavailab Eldon Kaur Unavailable [phone] Allergies Allergen (clinical drug ingredient) Drug/Non Drug [...] W/U Status Risk Notes Problem Plantar wart (77918465) Plantar wart (B07.0) Active confirmed Problem Acquired hallux valgus (42449012) Hallux valgus (acquired), left foot (M20.12) Active confirmed Problem Onychomycosis (270487013) Onychomycosis (B35.1) Active confirmed Vital Signs Blood pressure diastolic 80 mm Hg 10/05/2024 Height 5ft5in in 10/05/2024 Blood pressure systolic 128 mm Hg 10/05/2024 Weight 170 lbs 10/05/2024 BMI 28.29 kg/m2 10/05/2024 Procedures Procedure Date Ordered Date Performed Result Body Sit e 89295-LUBFQVE NAIL, 1-5 10/05/2024 N/A 77173-Ppaq Destruction, 1-14 10/05/2024 N/A Encounters Encounter Location Date Provider Diagnosis [facility] [address] 10/05/2024 Eldon Roy Plantar wart B07.0 ; Left foot pain M79.672 ; Pain in left foot M79.672 ; Pain in left ankle and joints of left foot M25.572 ; Bursitis of left foot M77.52 ; Hallux valgus (acquired), left foot M20.12 ; Onychomycosis B35.1 and Pain in left toe(s) M79.[address] [facility] [address] 10/05/2024 Eldon Roy Assessments Encounter Date Diagnosis [...] X ray : Foot, left 3V 10/05/2024 69371-BXYHGEN NAIL, 1-5 10/05/2024 70209-Bjsn Destruction, 1-14 10/05/2024 18497, J0702- Neuroma/Injection 01/30/20 11 Next Appt Details Provider Name:Eldon Roy , 01/18/2025 10:00:00 AM, [address] [place], [address], Insurance Providers Payer Name Payer Address Payer Phone Subscriber Number Group Number Insured Name Patient Relationship to Insured Coverage Start Date Coverage End Date Medicare National Govt [facility] [address] [facility] [address] [id number] Cristal Marshall Self - patient is the insured 2 [employer] [address] [place] [address] [id number] Cristal Marshall Self - patient is the insured Medical (General) History Medical History History ICD Code chicken pox sciatica IBS-C High Blood Pressure Warts Measles Surgical History Surgery Date(Month/Year) knee surgery 1992 cholecystectomy 2004 Gall bladder removed Ganglion cyst tx 1989 Ablation 1999 Anthroscopy 1980 Anal Fissure 2005 bunionectomy, Right 2010
--- OUTSIDE RECORDS SUMMARY | 2024-11-15 07:00 | XMS_ITS | Patient Health Record ---
Author Organization [facility] Address [address] [place] [address] Care Team Providers Care Chain Maker Machine Name Role Phone Mitch Anderson Primary Care Provider Unavailab Chon Villalba Jr Unavailable Chon Castro Unavailable Unavailable Allergies Allergen (clinical [...] Problem Status W/U Status Risk Notes Problem 042244243 Colon cancer screening (Z12.11) Active confirmed Problem 966924511 Irritable bowel syndrome with constipation (K58.1) Active confirmed Plan Of Treatment Future Test Test Name Order Date COLONOSCOPY 05/19/2014 COLONOSCOPY 11/06/2018 Next Appt Details Provider Name:Chon sommer Jr, 01/17/2025 01:35:00 PM, [address], [address], [place], [address], Insurance Providers Payer Name Payer Address Payer Phone Subscriber Number Group Number Insured Name Patient Relationship to Insured Coverage Start Date Coverage End Date [facility] IN[facility] [address] [place] [address] [id number] BERENICE MARSHALL Self - patient is the insured Medical (General) History Medical History History ICD Code irritable bowel syndrome history of colon polyps, last colonoscop y 07/01 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
[2024-11-15 08:03] LABS: Hematocrit 40.5 % (37.0-47.0); Hemoglobin 13.7 g/dl (12.0-16.0); Mean Corpuscular HGB Conc 33.8 g/dl (31.0-35.0); Mean Corpuscular Hemoglobin 29.5 pg (27.0-33.0); Mean Corpuscular Volume 87.3 fL (80.0-98.0); NRBC Abs Auto 0.000 X10*3/uL (0.0-0.012); NRBC Pct Auto 0.0 /100WBC (0.0-0.2); Platelet Count 319 X10*3/uL (160-400); Red Blood Count 4.64 X10*6/uL (4.20-5.50); White Blood Count 4.5 X10*3/uL (4.8-10.8)
[2024-11-15 08:17] LABS: Total Hemoglobin (HGBA1C) 3642.1460 umol/L
[2024-11-15 08:53] LABS: Alanine Aminotransferase 24 U/L (0-31); Albumin Level 4.3 g/dL (3.5-5.0); Alkaline Phosphatase 52 U/L (39-117); Anion Gap 11 (12-20); Aspartate Amino Transferase 27 U/L (5-31); Blood Urea Nitrogen 18 mg/dL (9-16); Calcium 9.2 mg/dL (8.4-10.2); Carbon Dioxide 28 mmol/L (22-29); Chloride 106 mmol/L (96-108); Cholesterol 222 mg/dL (<200); Estimated Glomerular Filt Rate > 60; HDL Cholesterol 77 mg/dL (>40); Potassium 3.5 mmol/L (3.3-5.1); Sodium 141 mmol/L (135-145); Total Protein 6.5 g/dL (6.5-8.0); Triglycerides 53 mg/dL (<150)
[2024-11-15 09:43] LABS: Microalbum/Creatinine Ratio Ur 7.9 ug/mg cr (<30)
== END 2024-11-15 06:59 | disposition home or self-care (01) ==
LOC: HO.LAB 06:58
PROVIDERS: PCP Physician Assistant; Visit Provider Physician Assistant
DX: I10 Essential (primary) hypertension (principal); E55.9 Vitamin D deficiency, unspecified; E78.9 Disorder of lipoprotein metabolism, unspecified; Z13.1 Encounter for screening for diabetes mellitus
CPT/HCPCS: 36415; 80053; 80061; 82043; 82306; 82570; 83036; 85027

== ENCOUNTER 2024-11-29 07:48 | Outpatient (AMB) | payer MEDICARE, OTHER, SELFPAY ==
--- OUTSIDE RECORDS SUMMARY | 2024-11-29 07:51 | XMS_ITS | Clinical Summary ---
Author Organization [facility] Address [address] [place] [address] Phone Care Team Providers Care Dial Painter Name Role Phone Tejinder Pride DO Primary Care Provider [phone] Allergies Active Allergy Reactions Criticality Noted Date [...] 2024 , 11/26/2022, 11/14/2021, Additional history exists COVID-19 VACCINE ( season) 2024 04/27/2024, 11/30/2023, 04/17/2023, Additional history exists PAP SMEAR 07/19/2025 07/19/2024, 11/19, 10/22/2018, Additional history exists Adult Td,Tdap Booster 06/17/2032 06/17/2022, 019 ZOSTER VACCINES Completed 02/19/2019, 01/18, 12/01/2018 PNEUMOCOCCAL VACCINES (50+ years) Completed 10/30/2022 RSV VACCINE Completed 04/17/2023 SMOKING STATUS SCREENING (Once After 26 Yrs) [...] * Pap Test (07/19/2024 12:00 AM EDT) Report [address] [address] Sales Enablement Specialist: Lex Flor MD YOUTH SERVICES SPECIALIST Cytology Report FINAL DIAGNOSIS A. PAP SMEAR [...] : 1955 (Age: 68) Sex: F Institution: [facility] Location: [facility] Date of Collection: 07/19/2024 Date of Reported: 07/26/2024 11:10 Results to: Bella Carroll MD [facility] Final Diagnosis A. PAP SMEAR (THIN PREP) CE: SPECIMEN ADEQUACY: Satisfactory for evaluation; transformation zone present. INTERPRETATION: NEGATIVE FOR INTRAEPITHELIAL LESION OR MALIGNANCY. Atrophy. [facility] Conversion Type 07/19/2024 10:53 AM EDT us Bella Carroll MD CYTOLOGY ORDERABLES Edited Re sult - Final [address] [id number] from Last 3 Months or Most Recently Relevant to Health Maintenance Insurance [facility] EX[facility]ENSION MEDICARE SUPPLEMENT MEDICARE PART A & B [facility] MEDICARE SUPPLEMENT MEDICARE PART A & B [address] [facility] MEDICARE SUPPLEMENT MEDICARE PART A & B [facility] MEDICARE SUPPLEMENT [facility] MEDICARE SUPPLEMENT MEDICARE PART A & [place] [id number] [facility] MEDICARE SUPPLEMENT MEDICARE PART A & B [facility] MEDICARE SUPPLEMENT MEDICARE PART A & B Care Teams Dial Painter Relationship Specialty Start Date End Date Tejinder Pride DO [address] [address] [place] [address] PCP - General Family Medicine 10/16/17 Additional Source Comments The information contained in this document represents components of the legal health record. It is not the complete legal health record.[facility]
--- OUTSIDE RECORDS SUMMARY | 2024-11-29 07:51 | XMS_ITS | Patient Health Record ---
Author Organization [facility] Address [address] [place] [address] Care Team Providers Care Captain Assistant Name Role Phone Mitch Anderson Primary Care Provider Unavailab Eldon Kaur Unavailable [phone] Allergies Allergen (clinical drug ingredient) Drug/Non Drug [...] W/U Status Risk Notes Problem Plantar wart (02504258) Plantar wart (B07.0) Active confirmed Problem Acquired hallux valgus (60590251) Hallux valgus (acquired), left foot (M20.12) Active confirmed Problem Onychomycosis (602093050) Onychomycosis (B35.1) Active confirmed Vital Signs Blood pressure diastolic 80 mm Hg 10/05/2024 Height 5ft5in in 10/05/2024 Blood pressure systolic 128 mm Hg 10/05/2024 Weight 170 lbs 10/05/2024 BMI 28.29 kg/m2 10/05/2024 Procedures Procedure Date Ordered Date Performed Result Body Sit e 92529-PNDXWQP NAIL, 1-5 10/05/2024 N/A 90439-Szld Destruction, 1-14 10/05/2024 N/A Encounters Encounter Location Date Provider Diagnosis [facility] [address] 10/05/2024 Eldon Roy Plantar wart B07.0 ; Left foot pain M79.672 ; Pain in left foot M79.672 ; Pain in left ankle and joints of left foot M25.572 ; Bursitis of left foot M77.52 ; Hallux valgus (acquired), left foot M20.12 ; Onychomycosis B35.1 and Pain in left toe(s) M79.[address] [facility] [address] 10/05/2024 Eldon Roy Assessments Encounter Date Diagnosis [...] X ray : Foot, left 3V 10/05/2024 [id number] NAIL, 1-5 10/05/2024 58486-Rhty Destruction, 1-14 10/05/2024 95918, J0702- Neuroma/Injection 01/30/20 11 Next Appt Details Provider Name:Eldon Roy , 01/18/2025 10:00:00 AM, [address] [place], [address], Insurance Providers Payer Name Payer Address Payer Phone Subscriber Number Group Number Insured Name Patient Relationship to Insured Coverage Start Date Coverage End Date Medicare National Govt [facility] [address] [place] [address] [id number] Cristal Marshall Self - patient is the insured [employer] [address] [place] [address] [id number] Cristal Marshall Self - patient is the insured Medical (General) History Medical History History ICD Code chicken pox sciatica IBS-C High Blood Pressure Warts Measles Surgical History Surgery Date(Month/Year) knee surgery 1992 cholecystectomy 2004 Gall bladder removed Ganglion cyst tx 1989 Ablation 1999 Anthroscopy 1980 Anal Fissure 2005 bunionectomy, Right 2010
--- OUTSIDE RECORDS SUMMARY | 2024-11-29 07:51 | XMS_ITS | Patient Health Record ---
Author Organization [facility] Address [address] [place] [address] Care Team Providers Care Director [employer] Name Role Phone Mitch Anderson Primary Care [...] Linzess 72 MCG 1 PO Once a day; Dur ation: 90 days 09/28/2019 Active Immunizations Vaccine Route Administration Date Status Comme nts Influenza Unknown 11/06/2018 Refused Problems Problem Type SNOMED Code ICD Code Onset Dates Problem Status W/U Status Risk Notes Problem Colon cancer screening (682524528) Colon cancer screening (Z12.11) Active confirmed Problem Irritable bowel syndrome characterized by constipation (609403508) Irritable bowel syndrome with constipation (K58.1) Active confirmed Plan Of Treatment Future Test Test Name Order Date COLONOSCOPY 05/19/2014 COLONOSCOPY 11/06/2018 Next Appt Details Provider Name:Chon sommer Jr, 01/17/2025 01:35:00 PM, [address], [address], [place], [address], Insurance Providers Payer Name Payer Address Payer Phone Subscriber Number Group Number Insured Name Patient Relationship to Insured Coverage Start Date Coverage End Date [facility] INDEMNITY [address] [place] [address] [id number] BERENICE MARSHALL Self - patient is the insured Medical (General) History Medical History History ICD Code irritable bowel syndrome history of colon polyps, last colonoscop y 07/01 anal fistula valvular heart disease AV node reentry tachycardia, status post ablation bunion surgery Denies W[place],DM,CVA,Lung disease,renal dise ase Surgical History Surgery Date(Month/Year) cardiac ablation cholecystectomy left knee arthroscopy anal fissure surgeries ganglion cyst
[2024-11-29 07:54] VITALS: BP 130/78; PULSE 60; O2SAT 98; BMI 28.5
--- NOTE | 2024-11-29 07:54 | MHC.PC.OV ---
Vital Signs 11/29/24 07:54 Height 5 ft 5 in Weight 171 lb BMI 28.5 BP 130/78 Blood Pressure Location Lt brachial Position Sitting Pulse 60 Pulse Source Pulse Oximeter Pulse Oximetry (%) 98 Oxygen Delivery Method Room Air Intake Visit Reasons: Annual Exam Allergies erythromycin base (Erythromycin Base) Allergy (Severe, Verified 11/29/24 08:10) Anaphylaxis oxycodone (From Percocet) Allergy (Mild, Verified 11/29/24 08:10) Passed Out Medication List - Last Reconciled 11/29/24 by Mitch Anderson PA-C bncoabiwdr-frpirnl-ypnsyoas 50-325-40 mg 1 cap PO Q4H PRN 5 days diltiazem HCl CD 180 mg PO DAILY gabapentin 100 mg PO BID PRN hydrochlorothiazide 25 mg PO DAILY linaclotide (Linzess) 72 mcg PO QAM lorazepam 1 mg PO BEDTIME 15 days timolol 0.25% 1 drp ophthalmic (eye) DAILY Tobacco use date assessed: 11/29/24 Fall risk assessment: No Falls in past year Last assessed Fall Risk: 11/29/24 Dental Screening Dental Screen Date: 11/29/24 Did you have a dental visit in the last 12 months?: Yes Did you have a dental problem in the last 6 months where you did not have access to dental care?: No Was dental information given to patient?: Patient has dentist HPI Annual Exam HPI Details Patient is a 69 year-old female here today for annual physical. Patient has a past medical history significant for anxiety, mild to moderate arthritis, paroxysmal SVT, leukopenia. concerns--> The patient has a history of sciatica, which is exacerbated by physical activity such as hiking. She also reports a bunion and a broken toe, which have impacted her mobility and physical activity levels. Will consider podiatry evaluation for foot if it continues to be a problem and injuring her ability to hike. ? .. ? 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 Of note she has had cardiac ablation x2 in the past.? She reports her palpitations have actually gotten more prevalent and worse.? She continues on diltiazem which has been helpful.? She will call her resource management specialist for re-evaluation on her SVT. .. Hypertension:? Patient blood pressure today in office acceptable. Patient continues with hydrochlorothiazide with good effect. Otherwise patient denies any chest discomfort, headaches, shortness of breath, lower extremity edema. .. Borderline high cholesterol: Patient's most recent lipid panel showing improved total cholesterol. Has been working on lifestyle modifications to reduce her cholesterol. .. Impaired glucose metabolism: Most recent fasting blood sugar and 100, A1c of 5.7. Will continue to follow fasting blood sugar and A1c. Patient will work on low carbohydrate diet ? . ? .. ? Colonoscopy- had colonoscopy 2019- repeat 5 years?- Dr anand ? .. ? Mammo-? Done April 2024- BIRADS 1 Bone density-done in 2021 which did show osteopenia, will recheck density. ? .. ? 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 Vaccine: UTD with COVID , willing to get FLu , up-to-date with pneumonia vaccine tetanus, shingles Laboratory Tests 10/19/22 11/10/23 07:32 09:00 WBC 4.2 L RBC 4.71 Creatinine 0.82 Cholesterol 225 H 214 H 25-OH Vitamin D To suki 39.4 Urine Microalbumin 6.0 PFSH Medical History COVID-19 Postmenopausal HTN (hypertension) Headache Arthritis Anxiety Paroxysmal SVT (supraventricular tachycardia) IBS (irritable bowel syndrome) Surgical History Hx of colonoscopy History of bunionectomy Hx of arthroscopic knee surgery History of surgical removal of ganglion cyst Hx of cholecystectomy H/O cardiac radiofrequency ablation Anal fistula Family History Mother AML (acute myeloblastic leukemia) Brother Diabetes Father Bone cancer Social History Household Members: None Housing: House Alcohol intake: never Patient Tobacco Use Status: Former Tobacco user Tobacco use type: Cigarette e-Cigarette/Vaping Use: Never Used Second Hand Smoke Exposure: No Advance Directives Date on File: 11/30/19 service: No Current occupational status: 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 1. Little interest or pleasure in doing things: not at all 2. Feeling down, depressed, or hopeless: not at all 3. Trouble falling or staying asleep, or sleeping too much: not at all 4. Feeling tired or having little energy: not at all 5. Poor appetite or overeating: not at all 6. Feeling bad about yourself - or that you are a failure or have let yourself or your family down: not at all 7. Trouble concentrating on things, such as reading the newspaper or watching television: not at all 8. Moving or speaking so slowly that other people could have noticed. Or the opposite - being so fidgety or restless that you have been moving around a lot more than usual: not at all 9. Thoughts that you would be better off or of hurting yourself in some way: not at all Total score: 0 Depression Screening Interpretation: Negative Depression Screening Done: Yes Source: Developed by Drs. Lorenzo Salinas, Janis Larry, Jesus Dunbar and colleagues, with an educational kimber from [employer]. Thrive Questionnaire Date Thrive assessed: 11/22/24 I am a: Patient What is your living situation today?: I have a steady place to live Within the past 12 months, did the food you bought not last and you didn't have the money to get more?: Never true Within the past 12 months, did you worry whether your food would run out before you got money to buy more?: Never true Do you have trouble paying for medicines?: No Do you have trouble getting transportation to medical appointments?: No Do you have trouble paying your heating and electricity bill?: No Do you have trouble taking care of your child, family member or friend?: No Do you have trouble with day-to-day activities such as bathing, preparing meals, shopping, managing finances, etc.?: No Are you currently unemployed and looking for a job?: No Are you interested in more education?: No Please select the resources that you would like help with: None Currently or been in a relationship where the following occur: No concerns reported THRIVE Score: 0 AUDIT C Alcohol Use Questionnaire (AUDIT-C) 1. How often do you have a drink containing alcohol?: Monthly or less 2. How many drinks containing alcohol do you have on a typical day when you are drinking?: 1 or 2 3. How often do you have six or more drinks on one occasion?: Never Total Score: 1 LUIS-7 AMB Questionnaire LUIS-7 Date LUIS - 7 assessed: 11/29/24 Feeling nervous, anxious, or on edge: 0 = Not at all Not being able to stop or control worryin = Not at all Worrying too much about different things: 0 = Not at all Trouble relaxin = Not at all Being so restless that it is hard to sit still: 0 = Not at all Becoming easily annoyed or irritable: 0 = Not at all Feeling afraid as if something awful might happen: 0 = Not at all Total LUIS-7 score (0-4 normal; 5-9 mild; 10-14 moderate; 15-21 severe): 0 Source: Developed by Drs. Lorenzo Salinas, aJnis Larry, Jesus Dunbar and colleagues, with an educational kimber from [employer]. Review of Systems Const Denies body aches, Denies chills, Denies excessive sweating, Denies fatigue, Denies fever(s) and Denies headache(s) Eyes Denies blurry vision ENT Denies dysphagia, Denies vertigo, Denies dizziness, Denies headache(s), Denies hearing loss and Denies tinnitus Card Denies chest pain, Denies chest pain with activity, Denies syncope, Denies irregular heart rhythm and Denies dyspnea Resp Denies chest congestion, Denies cough, Denies hemoptysis, Denies dyspnea and Denies wheezing GI Denies abdominal pain, Denies melena, Denies hematochezia, Denies coffee ground emesis, Denies dysphagia, Denies diarrhea, Denies nausea and Denies vomiting Denies urinary frequency, Denies dysuria, Denies urinary hesitancy and Denies urinary urgency Musc Denies arthralgias, Denies limited range of motion, Denies muscle cramps and Denies muscle weakness Skin/Breast Denies rash and Denies skin ulcer Neuro Denies Abnormal speech present, Denies confusion, Denies vertigo, Denies dizziness, Denies syncope, Denies headache(s), Denies memory loss and Denies seizure-like activity Psych Denies anxiety, Denies confusion, Denies depression, Denies memory loss, Denies panic attacks and Denies paranoia Endo Denies excessive sweating, Denies fatigue, Denies flushing, Denies polydipsia and Denies polyuria Aller/Immun Denies wheezing Physical exam (Primary Care) Vital Signs: Last Vital Signs Pulse 60 11/29/24 07:54 BP 130/78 11/29/24 07:54 Pulse Ox 98 11/29/24 07:54 Oxygen Delivery Method Room Air 11/29/24 07:54 BMI result Body Mass Index 28.5 Tobacco/Smoking Status: Tobacco use Status Tobacco use date assessed 11/29/24 11/29/24 07:58 Patient Tobacco Use Status Former Tobacco user 11/29/24 07:58 Tobacco use type Cigarette 11/29/24 07:58 e-Cigarette/Vaping Use Never Used 11/29/24 07:58 PHQ-9: PHQ-9 Score PHQ-9: Total score 0 11/29/24 07:58 Depression Screening Interpretation: Negative Thrive Assessment: Date of Thrive Assessment Date Thrive assessed 11/22/24 11/29/24 07:58 Currently or been in a relationship where the following occur: No concerns reported Const General: cooperative, comfortable, no acute distress, alert and awake; No confusion Orientation/consciousness: oriented to person, oriented to place, patient oriented x3 and No confusion HENMT Head: Yes normocephalic Ears: external ears normal and TM's normal bilaterally Face and sinus: No sinus tenderness Mouth: Normal oral and palatal mucosa present and tongue normal Teeth and gingiva: dentition normal and gingiva normal Throat: Yes posterior oropharynx normal, Yes tonsils normal and Yes uvula midline Eyes Conjunctivae: conjunctivae normal Sclerae: sclerae normal Pupils: Equal, round and reactive pupils present EOM: EOMs intact bilaterally Direct Ophthalmoscopy: No no photophobia Neck Neck: Yes no lymphadenopathy, No tender and Yes no JVD Thyroid: Thyroid normal Carotids: no bruits Chest Chest palpation & inspection: no tenderness Resp Effort & Inspection: normal respiratory effort, no audible wheezes, not labored and no stridor Auscultation: no crackles, no rales, no rhonchi and no wheezes Cardio Jugular venous distension: no JVD Rate: regular rate, not bradycardic and not tachycardic Rhythm: regular rhythm Bruits: no carotid bruits Peripheral pulses: Peripheral pulses 2+ throughout GI Inspection: Yes normal to inspection, No abdominal wall ecchymosis and No visible herniation Palpation (GI): Soft to palpation, nontender, no guarding, not rigid and No hepatosplenomegaly present Auscultation: normoactive bowel sounds General: Yes no CVA tenderness Back/Spine/Pelvis Back: no CVA tenderness and No back tenderness Cervical Spine: cervical ROM normal Thoracic/Lumbar Spine: thoracic and lumbar spine normal to inspection, straight leg raise negative bilaterally, No thoraco-lumbar ROM limited and No lumbar spinal tenderness Skin Lesions: no lesions Rashes: no rashes Wounds: no wounds Neuro General: oriented to person, oriented to place, patient oriented x3, CN's II-XI intact bilaterally and No confusion Cranial nerves: Yes Equal, round and reactive pupils present and Yes Normal accommodation reflex present Cognition (Neuro): normal cognition Speech: No Abnormal speech present Gait exam (Neuro): Normal gait present Motor exam (neuro): 5/5 motor strength present throughout Extrem Right upper extremity: full ROM; no cyanosis Left upper extremity: full ROM; no cyanosis Right lower extremity: no edema Left lower extremity: no edema Psych Appearance: grossly normal Mental Status: mental status grossly normal Affect: normal affect Attitude: cooperative Thought process: Normal thought process present Coding Level of Care Code Est Pt Prev Care >65y(68888) Diagnoses Annual physical exam Z00.00 Impaired glucose metabolism R73.09 Essential hypertension I10 Hypertension type: essential hypertension Borderline high cholesterol E78.9 SVT (supraventricular tachycardia) I47.1 Assessment & Plan Assessment & Plan (1) Annual physical exam: Code(s): Z00.00 - Encounter for general adult medical examination without abnormal findings Category: Medical Plan: As per HPI (2) Impaired glucose metabolism: Code(s): R73.09 - Other abnormal glucose Category: Medical Plan: Patient's most recent fasting blood sugar 100 and A1c of 5.7. She will work on low carbohydrate diet. (3) HTN (hypertension): Code(s): I10 - Essential (primary) hypertension Category: Medical Qualifiers: Hypertension type: essential hypertension Qualified Code(s): I10 - Essential (primary) hypertension Plan: Patient's blood pressure acceptable today in office. Will continue current dose of hydrochlorothiazide with goal blood pressure to remain below 140/90 (4) Borderline high cholesterol: Code(s): E78.9 - Disorder of lipoprotein metabolism, unspecified Category: Medical Plan: Patient's most recent lipid panel showing borderline high total cholesterol and LDL. She will work on dietary modifications to reduce her cholesterol. Goal LDL to be below 160 and total cholesterol to be below 200. (5) SVT (supraventricular tachycardia): Code(s): I47.1 - Supraventricular tachycardia Category: Medical Plan: Patient has a history of SVT, status post ablation many years ago. She continues with the use of diltiazem with good effect. Orders: Orders Lipid Panel Today E78.9 - Disorder of lipoprotein metabolism, unspecified Comprehensive [place]. Panel Fast Today E78.9 - Disorder of lipoprotein metabolism, unspecified Microalbumin, Random (w Creat) Today I10 - Essential (primary) hypertension Vitamin D 25-OH Total Today E55.9 - Vitamin D deficiency, unspecified Complete Blood Count no Diff Today I10 - Essential (primary) hypertension Medications: New scopolamine base 1 patch transdermal Q3D PRN 4 ea 0RF nausea and vomiting 7 days H81.10 - Benign paroxysmal vertigo, unspecified ear Changed From gabapentin 100 mg PO BID PRN M54.30 - Sciatica, unspecified side To gabapentin 100 mg PO BID PRN 60 caps 2RF back pain 30 days M54.30 - Sciatica, unspecified side
== END 2024-11-29 08:36 | disposition home or self-care (01) ==
LOC: HO.HMCH 07:49
PROVIDERS: PCP Physician Assistant; Visit Provider Physician Assistant
DX: Z00.00 Encounter for general adult medical examination without abnormal findings (principal); R73.09 Other abnormal glucose; I10 Essential (primary) hypertension; E78.9 Disorder of lipoprotein metabolism, unspecified; I47.10 Supraventricular tachycardia, unspecified

== ENCOUNTER → 2024-11-29 07:48 | Outpatient (BNVA) | payer MEDICARE, OTHER, SELFPAY | PROVIDERS: PCP Physician Assistant; Visit Provider Physician Assistant | DX: Z00.00 Encounter for general adult medical examination without abnormal findings (principal); I10 Essential (primary) hypertension; R73.09 Other abnormal glucose; F41.9 Anxiety disorder, unspecified; I47.10 Supraventricular tachycardia, unspecified; E78.00 Pure hypercholesterolemia, unspecified; H81.10 Benign paroxysmal vertigo, unspecified ear; M54.30 Sciatica, unspecified side | CPT/HCPCS: 96127; 99397 ==